=== PATIENT | male | born 1960 | race Caucasian/White ===

== ENCOUNTER 2025-04-29 08:48 | Outpatient (AMB) | payer OTHER, SELFPAY ==
--- NOTE | 2025-04-29 08:58 | A.OFFVIS_ITS ---
Vital Signs 04/29/25 09:02 Height 5 ft 9 in Weight 238 lb BMI 35.1 BP 138/80 Blood Pressure Location Rt brachial Position Sitting Pulse 73 Pulse Source Pulse Oximeter Pulse Oximetry (%) 96 Oxygen Delivery Method Room Air Intake Visit Reasons: ENP - ZAHEER Intake Note: Patient presents MARKETING COORDINATOR ZAHEER. Patient witnessed apnea,gasping,snoring. Jumps in sleep. goes to bed at 11-11-30 gets up at 7-8. gets up about once per night. Patient states HST done few months ago through [facility]. Accompanied by: Spouse Allergies ciprofloxacin (From Cipro) Allergy (Unknown, Verified 04/29/25 09:03) Unknown HPI Comments Details: 65 year old male new patient visit for zaheer referred by his pcp. Tiara his helps with history He has had ZAHEER all his life and has a CPAP machine for over 10 years and the machine is failing. He can not sleep without his cpap mask. He has headaches in the morning and does not feel well rested the next day and chronically fatigued. He wakes up at night gasping for air, choking and snores loudly according to his . He [facility] Sleep Test showed no evidence of zaheer. He would like a PSG. He moves alot, his entire body jerks aggressively and becomes stiff like a muscular spasm. Has difficulty with ligther to deeper stages. RLS burning pain bilaterally denies radiating pain and neuropathy. He has Plantar fasciitis, bilaterally has flat feet. Mood is anxious most of the time, stressed out and eats cookies, ice cream. Memory is good on vyvanse, for focus and lack of concentration. FH+ mom ovarian cancer in 2010, passed at 80. Dad passed right before turning 90 with late onset Alzheimer. Both he and his were tested for Bruce Danlos biomarker, the joints don't sublux. Denies pain. Genetic testing completed, is hypomobile, he is hypermobile lower ext., and Neg for EDS. Daughter was diagnosed with Bruce Danlos at 11 in 2012 wears compression garments. [facility] Medical History (Updated 04/29/25 @ 09:58 by Denise Paige PA-C) Palpitations Acute upper respiratory infection, unspecified Encounter for screening for malignant neoplasm of prostate Testicular hypofunction Encounter for screening for malignant neoplasm of colon Attention-deficit hyperactivity disorder, combined type Generalized anxiety disorder Major depressive disorder, single episode, in full remission Hypertensive chronic kidney disease with stage 1 through stage 4 chronic kidney disease, or unspecified chronic kidney disease Chronic kidney disease, stage 1 Generalized abdominal pain Body mass index 34.0-34.9, adult ADHD Pulmonary embolism Diverticulitis Depression Sleep apnea HTN (hypertension) Surgical History History of colon resection Hx of appendectomy History of total right knee replacement History of left knee replacement Family History Father Hip fracture Mother Ovarian cancer Brother Prostate cancer Maternal Grandmother Breast cancer Social History Alcohol intake: current Alcohol intake frequency: holidays/special occasions only Patient Tobacco Use Status: Never used Tobacco e-Cigarette/Vaping Use: Never Used Physical Exam Vital Signs: Last Vital Signs Pulse 73 04/29/25 09:02 BP 138/80 04/29/25 09:02 Pulse Ox 96 04/29/25 09:02 Oxygen Delivery Method Room Air 04/29/25 09:02 BMI result Body Mass Index 35.1 Const General: cooperative, comfortable and no acute distress Nutritional Appearance: obese Orientation/consciousness: patient oriented x3 HEENT Face and sinus: Yes face symmetric Teeth and gingiva: other ([place] score is 4) Eyes Pupils: Equal, round and reactive pupils present Neck Neck: Yes full ROM Resp Effort & Inspection: normal respiratory effort and able to speak in complete sentences Neuro General: patient oriented x3 and moves all extremities Cranial nerves: Yes Facial sensation intact/muscles of mastication intact, Yes Equal, round and reactive pupils present, Yes Normal accommodation reflex present, Yes Nystagmus not present, Yes Normal facial strength present, Yes Midline tongue present, Yes Ability to bilaterally rotate head present and Yes Ability to bilaterally elevate shoulders present Cognition (Neuro): normal cognition Gait exam (Neuro): Normal gait present Motor exam (neuro): 5/5 motor strength present throughout Deep tendon reflexes (DTR's): Right triceps reflex intensity grade: 2+, Left triceps reflex intensity grade: 2+, Rt Biceps (C5, C6): 2+, Left biceps reflex i ntensity grade: 2+, Right brachioradialis reflex intensity grade: 2+, Left brachioradialis reflex intensity grade: 2+, Right patellar reflex intensity grade: 3+ and Left patellar reflex intensity grade: 3+ Psych Appearance: grossly normal Mental Status: mental status grossly normal Thought process: Normal thought process present Thought content: Normal thought content present Assessment & Plan Assessment & Plan (1) ZAHEER on CPAP: Comment: machine is failing Code(s): G47.33 - Obstructive sleep apnea (adult) (pediatric) Category: Medical (2) Excessive daytime sleepiness: Comment: PSG Code(s): G47.19 - Other hypersomnia Category: Medical (3) Chronic fatigue: Comment: Labs Code(s): R53.82 - Chronic fatigue, unspecified Category: Medical (4) Plantar fasciitis, bilateral: Code(s): M72.2 - Plantar fascial fibromatosis Category: Medical Plan PSG r/o zaheer on cpap therapy for over 10 years, [facility] with [facility] requested results. Labs to r/o chronic fatigue CBC/ CMP/ B12/folate, ferritin, Vit D/ TSH/ Homocysteine MMA. ADHD continue vyvanse 20mg po daily, at breakfast. Irritable mood due to lack of sleep, address Desvenlafaxine dose with pcp. Podiatry referral Bilateral foot pain w/ Plantar fasciitis Orders: Orders RT PSG in-lab sleep study Today G47.19 - Other hypersomnia Referrals Podiatry Referral M72.2 - Plantar fascial fibromatosis Patient Instructions: Sleep Hygiene provided: set a scheduled bedtime and wake time to help regulate the circadian rhythm and balance the release of pituitary hormones. Sleep in a dark room, temperatures below 68 degrees, and no devices n bed. Limit caffeinated products 6 hours prior to bed, and limit fluids 2-4 hours prior to bed. Gentle night yoga, diffusing essential oils, and playing soft music can be relaxing. BMI /Weight is elevated, biking, hiking, swimming can help alleviate stress CBTI livier for meditation and control of strong emotions. Please complete the following fasting labs to rule out deficiencies. CBC/CMP/ B12/ Vit D/ TSH/ Homocysteine and MMA/ Ferritin. Coding Level of Care Code New Pt Level 4 (21760) Diagnoses ZAHEER on CPAP G47.33 Excessive daytime sleepiness G47.19 Chronic fatigue R53.82 Plantar fasciitis, bilateral M72.2 Sleep Questionnaire Difficulty falling asleep: No Difficulty staying asleep?: Yes Number of arousals: irritable- 1-2x / month Snoring: Yes (uncertain) Witnessed apneas: Yes Gasping arousals: Yes Nocturia: No GERD: No Vivid dreams: No Acting out dreams: No Abnormal behavior in sleep: No Abnormal movements in sleep: No Morning headaches: Yes (otc vanquish- hydrating) Excessive daytime sleepiness: Yes Daytime naps: No Restless legs: Yes Hallucinations: No (ringing in ears- bilaterally tinnitus) Sleep paralysis: No Drop attacks: No Sleep Study: Yes CPAP: Yes (>10 years old is failing.)
[2025-04-29 09:02] VITALS: BP 138/80; PULSE 73; O2SAT 96; BMI 35.1
--- OUTSIDE RECORDS SUMMARY | 2025-04-29 09:06 | XMS_ITS | Patient Health Record ---
Author Organization [facility] Address [address] [id number] Care Team Providers Care Roundsman Name Role Phone Madelin Chicas Primary Care Provider [facility] Unavailable [phone] Allergies Allergen (clinical drug ingredient) Drug/Non Drug Allergy documented on EMR Reaction Allergy Type Onset Date Status ciprofloxacin cipro (uncoded) Unknown Allergy Active Results Component Value Reference Range Notes TISSUE EXAM Reviewed date:01/29/2025 04:54:20 PM Interpretation: Performing Lab: Notes/Report: Final Diagnosis Stomach, gastric biopsies: Oxyntic type gastric mucosa with no specific pathologic changes. No Helicobacter type gastritis or reactive changes identified. Gross Description A. Stomach, gastric biopsies: Labeled gastric b stomach . Received in formalin, are five irregular soft to rubbery, rod-pink to red tissue fragments, approximately ranging from 0.25 cm to 0.5 cm in greatest diameters, which are wrapped in paper and submitted in toto in one cassette, five pieces, multiple levels. hs/DG Disclaimer Unless otherwise specified, all tissue is 10% NB formalin fixed and paraffin embedded. Echocardiogram Reviewed date:01/22/2025 01:21:03 PM Interpretation: Performing Lab: Notes/Report: Exercise Treadmill Stress Te st (TMST) Reviewed date:12/19/2024 01:48:49 PM Interpretation: Performing Lab: Notes/Report: Exercise Stress Nuclear Test Reviewed date:01/20/2025 03:07:01 PM Interpretation: Performing Lab: Notes/Report: Amylase-[id number] Reviewed date:07/18/2024 01:29:28 PM Interpretation: Performing Lab:[facility] [place], Phone - [phone], Director Candelario Johansen Notes/Report: Amylase 76 31-110 U/L Lipase-[id number] Reviewed date:07/18/2024 01:29:28 PM Interpretation: Performing Lab:[facility] [address], Phone - [phone], Director Candelario Johansen Notes/Report: Lipase 52 13-78 U/L Testosterone-[id number] Reviewed date:07/18/2024 01:29:28 PM Interpretation: Performing Lab:[facility] [place], [address] [place] [address], Phone - [phone], Director Candelario Johansen Notes/Report: Testosterone 638 264-916 ng/dL Adult male reference interval is based on a population of healthy nonobese males (BMI <30) between 19 and 39 years old. Keyona et.al. JCEM 2017,102;9555-4163. PMID: 45835837. Luteinizing Hormone(LH)-0042 83 Reviewed date:07/18/2024 01:29:28 PM Interpretation: Performing Lab:[facility] [place], [address] [place] [address], Phone - [phone], Director Candelario Johansen Notes/Report: LH 7.6 1.7-8.6 mIU/mL FSH-[id number] Reviewed date:07/18/2024 01:29:28 PM Interpretation: Performing Lab:[facility] [address], Phone - [phone], Director Candleario Johansen Notes/Report: FSH 3.7 1.5-12.4 mIU/mL Prolactin-[id number] Reviewed date:07/18/2024 01:29:28 PM Interpretation: Performing Lab:[facility] [place], [address] [place] [address], Phone - [phone], Director Candelario Johansen Notes/Report: Prolactin 9.7 3.6-25.2 ng/mL CBC With Differential/Platel et-[id number] Reviewed date:07/18/2024 01:29:28 PM Interpretation: Performing Lab:[facility] [place], [address] [place] [address], Phone - [phone], Director - MDJodry Notes/Report: WBC 10.8 3.4-10.8 x10E3/uL RBC 5.11 4.14-5.80 x10E6/uL Hemoglobin 16.1 13.0-17.7 g/dL Hematocrit 47.8 37.5-51.0 % MCV 94 79-97 fL MCH 31.5 26.6-33.0 pg MCHC 33.7 31.5-35.7 g/dL RDW 12.3 11.6-15.4 % Platelets 270 150-450 x10E3/uL Neutrophils 57 Not Estab. % Lymphs 26 Not Estab. % Monocytes 6 Not Estab. % Eos 11 Not Estab. % Basos 0 Not Estab. % Neutrophils (Absolute) 6.2 1.4-7.0 x10E3/uL Lymphs (Absolute) 2.8 0.7-3.1 x10E3/uL Monocytes(Absolute) 0.6 0.1-0.9 x10E3/uL Eos (Absolute) 1.2 0.0-0.4 x10E3/uL Baso (Absolute) 0.0 0.0-0.2 x10E3/uL Immature Granulocytes 0 Not Estab. % Immature Grans (Abs) 0.0 0.0-0.1 x10E3/uL Comp. Metabolic Panel ([id number] Reviewed date:07/18/2024 01:29:28 PM Interpretation: Performing Lab:[facility], [address] [place] [address], Phone - [phone], Director - [facility] Notes/Report: Glucose 96 70-99 mg/dL BUN 11 8-27 mg/dL Creatinine 1.11 0.76-1.27 mg/dL eGFR 75 >59 mL/min/1.73 BUN/Creatinine Ratio 10 10-24 Sodium 143 134-144 mmol/L Potassium 4.1 3.5-5.2 mmol/L Chloride 104 96-106 mmol/L Carbon Dioxide, Total 20 20-29 mmol/L Calcium 9.6 8.6-10.2 mg/dL Protein, Total 6.8 6.0-8.5 g/dL Albumin 4.3 3.9-4.9 g/dL Globulin, Total 2.5 1.5-4.5 g/dL Bilirubin, Total 0.3 0.0-1.2 mg/dL Alkaline Phosphatase 111 44-121 IU/L AST (SGOT) 22 0-40 IU/L ALT (SGPT) 18 0-44 IU/L UA/M w/rflx Culture, Routine -[id number] Reviewed date:07/18/2024 01:29:28 PM Interpretation: Performing Lab:[facility] [place], [address] [facility], Phone - [phone], [facility] Notes/Report: Specific [place] 1.018 1.005-1.030 pH 6.0 5.0-7.5 Urine-Color Yellow Yellow Appearance Clear Clear WBC Esterase Negative Negative Protein Negative Negative/Trace Glucose Negative Negative Ketones Negative Negative Occult Blood Negative Negative Bilirubin Negative Negative Urobilinogen,Semi-Qn 0.2 0.2-1.0 mg/dL Nitrite, Urine Negative Negative Microscopic Examination Micr oscopic follows if indicated. Microscopic Examination See below: Micr oscopic was indicated and was performed. Urinalysis Reflex This speci men will not reflex to a Urine Culture. WBC None seen 0 - 5 /hpf RBC None seen 0 - 2 /hpf Epithelial Cells (non renal) None seen 0 - 10 /hpf Casts None seen None seen /lpf Bacteria None seen None seen/Few Urinalysis, Complete-[id number] Reviewed date:09/25/2024 10:13:57 AM Interpretation: Performing Lab:[facility] [place], [address] [facility], Phone - [phone], [facility] Notes/Report: Specific [place] 1.014 1.005-1.030 pH 6.0 5.0-7.5 Urine-Color Yellow Yellow Appearance Clear Clear WBC Esterase Negative Negative Protein Negative Negative/Trace Glucose Negative Negative Ketones Negative Negative Occult Blood Negative Negative Bilirubin Negative Negative Urobilinogen,Semi-Qn 0.2 0.2-1.0 mg/dL Nitrite, Urine Negative Negative Microscopic Examination Micr oscopic follows if indicated. Microscopic Examination See below: Micr oscopic was indicated and was performed. WBC None seen 0 - 5 /hpf RBC None seen 0 - 2 /hpf Epithelial Cells (non renal) None seen 0 - 10 /hpf Casts None seen None seen /lpf Bacteria None seen None seen/Few Testosterone-[id number] Reviewed date:09/25/2024 10:13:57 AM Interpretation: Performing Lab:[facility] [place], [address] [facility], [place], Phone - [phone], Director - MDJodry Notes/Report: Testosterone 545 264-916 ng/dL Adult male reference interval is based on a population of healthy nonobese males (BMI <30) between 19 and 39 years old. jocelyn Rand.al. JCEM 2017,102;0985-5455. PMID: 50403643. Respiratory Panel w/ SARS-Co [id number] Reviewed date:09/25/2024 11:21:47 AM Interpretation: Performing Lab:[facility] [place], [address] [facility], [place], Phone - [phone], Director - MDJodry Notes/Report: Adenovirus Not Detected Not Detected Coronavirus HKU1 Not Detected Not Detected Coronavirus NL63 Detected Not Detected Coronavirus 229E Not Detected Not Detected Coronavirus OC43 Not Detected Not Detected SARS-CoV-2 Not Detected Not Detected Human Metapneumovirus Not Detected Not Detected Human Rhinovirus/Enterovirus Not Detected Not Detected Influenza A Not Detected Not Detected Influenza A/H1 TNP Test not perf ormed Influenza A/H1-2009 TNP Test not performed Influenza A/H3 TNP Test not perf ormed Influenza B Not Detected Not Detected Parainfluenza 1 Not Detected Not Detected Parainfluenza 2 Not Detected Not Detected Parainfluenza 3 Not Detected Not Detected Parainfluenza 4 Not Detected Not Detected Respiratory Syncytial Virus Not Detected Not Detected Bordetella parapertussis Not Detected Not Detected Bordetella pertussis Not Detected Not Detected Chlamydophila pneumoniae Not Detected Not Detected Mycoplasma pneumoniae Not Detected Not Detected Comp. Metabolic Panel ([id number] Reviewed date:09/25/2024 10:13:57 AM Interpretation: Performing Lab:[facility] [place], [address] [facility], [place], Phone - [phone], Director - MDJodry Notes/Report: Glucose 92 70-99 mg/dL BUN 13 8-27 mg/dL Creatinine 1.06 0.76-1.27 mg/dL eGFR 79 >59 mL/min/1.73 BUN/Creatinine Ratio 12 10-24 Sodium 141 134-144 mmol/L Potassium 4.4 3.5-5.2 mmol/L Chloride 100 96-106 mmol/L Carbon Dioxide, Total 24 20-29 mmol/L Calcium 9.6 8.6-10.2 mg/dL Protein, Total 7.2 6.0-8.5 g/dL Albumin 4.4 3.9-4.9 g/dL Globulin, Total 2.8 1.5-4.5 g/dL Bilirubin, Total 0.6 0.0-1.2 mg/dL Alkaline Phosphatase 93 44-121 IU/L AST (SGOT) 16 0-40 IU/L ALT (SGPT) 13 0-44 IU/L PSA Total+% Free-[id number] Reviewed date:09/25/2024 10:13:57 AM Interpretation: Performing Lab:[facility] [place], [address], [place], Phone - [phone], Director - Eleno Notes/Report: Prostate Specific Ag 2.9 0.0-4.0 ng/mL Tyler ECLIA methodology. . According to the [place] [employer], Serum PSA should decrease and remain at undetectable levels after radical prostatectomy. The AUA defines biochemical recurrence as an initial PSA value 0.2 ng/mL or greater followed by a subsequent confirmatory PSA value 0.2 ng/mL or greater. Values obtained with different assay methods or kits cannot be used interchangeably. Results cannot be interpreted as absolute evidence of the presence or absence of malignant disease. PSA, Free 0.64 N/A ng/mL Tyler ECLIA methodology. % Free PSA 22.1 The table below lists the probability of prostate cancer for men with non-suspicious CHRIS results and total PSA between 4 and 10 ng/mL, by patient age (Adilene et al, LORETTA 1998, 279:1542). % Free PSA 50-64 yr 65-75 yr 0.00-10.00% 56% 55% 10.01-15.00% 24% 35% 15.01-20.00% 17% 23% 20.01-25.00% 10% 20% >25.00% 5% 9% Please note: Adilene et al did not make specific recommendations regarding the use of percent free PSA for any other population of men. EKG Reviewed date:09/25/2024 10:13:57 AM Interpretation: Performing Lab: Notes/Report: ECGDiastolicBP 78 ECGHr 77 ECGPRInterval 152 ECGPWaveAxis 18 ECGQRSDuration 90 ECGQrsWaveAxis 25 ECGQTcInterval 391 ECGQTInterval 362 ECGSystolicBP 126 ECGTWaveAxis -1 RR_DiastolicBP 0 RR_MaxRRInterval 0 RR_MeanHR 0 RR_MeanRRInterval 0 RR_MinRRInterval 0 RR_NumBeats 0 RR_NumNormalBeats 0 RR_SystolicBP 0 COLOGUARD Reviewed date:07/23/2024 10:49:55 PM Interpretation:Negative Performing Lab: Notes/Report: Negative FIT DNA COLOGUARD 07/21/2024 Reason For Referral Reason screening colonoscop y due and would benefit from endoscopy due to worsening reflux faxed Diagnosis 1 Encounter for screen ing for malignant neoplasm of colon (Z12.11) Referral Organization [facility] Referring Provider First Name Madelin Referring Provider Last Name Aviva Referring Provider Speciality Nurse Geovanny tobar Referred Provider Moo Gannon Referred Provider Specialty Gastroentero logy General Notes Rayne BURRELL 06/19 03:48:18 PM >faxed Referral Priority Routine Referral Appointment Date 10/23/2024 Reason Over 15,000 PVCs, wi ll need consult faxed REFAXED Diagnosis 1 Ventricular prematur e depolarization (I49.3) Referral Organization [facility] Referring Provider First Name Madelin Referring Provider Last Name Aviva Referring Provider Speciality Nurse Geovanny tobar Referred Provider Pioneer Sean chambers, Fina Referred Provider Specialty Cardiology General Notes Rayne BURRELL 11/2024 05:31:23 PM >[facility]ed, [facility] 10/28/2024 11:37:53 AM > REFAXED PER PATIENT, Divina BURRELL 01/19/2025 09:19:10 AM > Called PVC spoke to Jing 07/01/2025 at 10:20 am, Divina BURRELL 01/19/2025 09:26:46 AM > Left a message for Renata Referral Priority Routine Referral Appointment Date 02/26/2025 Reason faxed Diagnosis 1 Obstructive sleep ap vicenta (adult) (pediatric) (G47.33) Referral Organization [facility] Referring Provider First Name Madelin Referring Provider Last Name Aviva Referring Provider Speciality Nurse Geovanny tobar Referred Provider Sudha Huff Referred Provider Specialty Sleep Medici ne General Notes [facility] 02/15 11:07:33 AM >faxed Referral Priority Routine Medications Medication SIG (Take, Route, Frequency, Duration) Notes Start Date End Date Status AndroGel Pump 20.25 MG/ACT (1.62%) 1 pump to skin in the morning to shoulder, upper arms or abdomen Transdermal Once a day; Duration: 30 days 04/16/2025 Active Desvenlafaxine Succinate ER 50 MG Take 1 tablet by mouth once daily; Duration: 90 days Active Losartan Potassium 50 MG Take 1 tablet b y mouth once daily; Duration: 90 Active Vyvanse 20 MG 1 capsule in the mor freddie Orally Once a day; Duration: 30 days 03/25/2025 Active Semaglutide-Weight Management 1.7 MG/0.75ML 0.75 mL Subcutaneous Active Repatha SureClick 140 MG/ML INJECT 1ML SUBCUTANEOUSLY EVERY TWO WEEKS; Duration: 28 Active Immunizations Vaccine Route Administration Date Status Comme nts *Tdap IM Intramuscular 02/23/2023 Administered Social History Alcohol Screen (Audit-C) Question Answer Notes Did you have a drink containing alcohol in the p ast year? No Points 0 Interpretation Negative AUDIT-C (Standard) Question Answer Notes Did you have a drink containing alcohol in the p ast year? No Points 0 Interpretation Negative Problems Problem Type SNOMED Code ICD Code Onset Dates Problem Status W/U Status Risk Notes Problem Testicular hypofunction (095471109) Testicular hypofunction (E29.1) Active confirmed Problem Vitamin D deficiency (03472262) Vitamin D deficiency, unspecified (E55.9) Active confirmed Problem Mixed hyperlipidemia (010703595) Mixed hyperlipidemia (E78.2) Active confirmed Problem Major depression, single episode, in complete remission (52608569) Major depressive disorder, single episode, in full remission (F32.5) Active confirmed Problem Generalized anxiety disorder (09837615) Generalized anxiety disorder (F41.1) Active confirmed Problem Attention deficit hyperactivity disorder, combined type (39893048) Attention-deficit hyperactivity disorder, combined type (F90.2) Active confirmed Problem Chronic migraine without aura, non-intractable (112349426016543) Chronic migraine without aura, not intractable, without status migrainosus (G43.709) Active confirmed Problem Obstructive sleep apnea syndrome (disorder) (49214823) Obstructive sleep apnea (adult) (pediatric) (G47.33) Active confirmed Problem Chronic kidney disease due to hypertension (410300083868309) Hypertensive chronic kidney disease with stage 1 through stage 4 chronic kidney disease, or unspecified chronic kidney disease (I12.9) Active confirmed Problem Atherosclerotic heart disease of [place] coronary artery without angina pectoris (686062370048178) Atherosclerotic heart disease of [place] coronary artery without angina pectoris (I25.10) Active confirmed Problem Ventricular premature depolarization (873146645) Ventricular premature depolarization (I49.3) Active confirmed Problem Diverticulosis o f both small and large intestine without perforation or abscess with bleeding (K57.51) Active confirmed Problem SHUKLA - Nonalcoholic steatohepatitis (021850243) Nonalcoholic steatohepatitis (SHUKLA) (K75.81) Active confirmed Problem Osteoarthritis of knee (270559843) Bilateral primary osteoarthritis of knee (M17.0) Active confirmed Problem Chronic kidney disease stage 1 (076229050) Chronic kidney disease, stage 1 (N18.1) Active confirmed Problem Erectile dysfunction (disorder) (420786567) Other male erectile dysfunction (N52.8) Active confirmed Problem History of pulmonary embolus (043643568) Personal history of pulmonary embolism (Z86.711) Active confirmed Problem COVID19 ANGELA-Viru s Identified (U07.1) Active confirmed Problem Body mass index 35.00 to 39.99 (708390229225549) Body mass index [BMI] 36.0-36.9, adult (Z68.36) Active confirmed Problem Body mass index 35.00 to 39.99 (071808600032792) Body mass index [BMI] 37.0-37.9, adult (Z68.37) Active confirmed Problem Body mass index 30.00 to 34.99 (404241056040625) Body mass index [BMI] 34.0-34.9, adult (Z68.34) Problem resolved confirmed Vital Signs Heart Rate 98 /min 10/20/2024 Temperature 96.7 degrees Fahrenheit 09/24/2024 Oximetry 98 % 09/24/2024 Blood pressure diastolic 76 mm Hg 10/20/2024 Height 5 ft 8 in in 10/20/2024 Blood pressure systolic 128 mm Hg 10/20/2024 Weight 228 lbs 10/20/2024 BMI 34.66 kg/m2 10/20/2024 Procedures Procedure Date Ordered Date Performed Result Body Sit e HOLTER MONITOR, 7 DAYS, INTERPRETATION 10/20/2024 N/A HOLTER MONITOR, 7 DAYS, APPLICATION 09/24/2024 N/A Encounters Encounter Location Date Provider Diagnosis [facility] [address] [id number] 06/24/2024 Madelin Chicas Hypertensive chronic kidney disease with stage 1 through stage 4 chronic kidney disease, or unspecified chronic kidney disease I12.9 ; Chronic kidney disease, stage 1 N18.1 ; Major depressive disorder, single episode, in full remission F32.5 ; Generalized anxiety disorder F41.1 ; Attention-deficit hyperactivity disorder, combined type F90.2 and Encounter for screening for malignant neoplasm of colon Z12.11 [facility] [address] [id number] 07/17/2024 Madelin Chicas Major depressive disorder, single episode, in full remission F32.5 ; Testicular hypofunction E29.1 ; Abdominal distension (gaseous) R14.0 ; Generalized abdominal pain R10.84 ; Vomiting, unspecified R11.10 and Encounter for screening for malignant neoplasm of colon Z12.11 [facility] [address] [id number] 09/24/2024 Madelin Chicas Generalized abdomina l pain R10.84 ; Hypertensive chronic kidney disease with stage 1 through stage 4 chronic kidney disease, or unspecified chronic kidney disease I12.9 ; Chronic kidney disease, stage 1 N18.1 ; Major depressive disorder, single episode, in full remission F32.5 ; Generalized anxiety disorder F41.1 ; Attention-deficit hyperactivity disorder, combined type F90.2 ; Encounter for screening for malignant neoplasm of colon Z12.11 ; Testicular hypofunction E29.1 ; Encounter for screening for malignant neoplasm of prostate Z12.5 ; Acute upper respiratory infection, unspecified J06.9 and Palpitations R00.2 [facility] [address] [id number] 10/20/2024 Madelin Chicas Hypertensive chronic kidney disease with stage 1 through stage 4 chronic kidney disease, or unspecified chronic kidney disease I12.9 ; Major depressive disorder, single episode, in full remission F32.5 ; Generalized anxiety disorder F41.1 ; Attention-deficit hyperactivity disorder, combined type F90.2 and Ventricular premature depolarization I49.3 [facility] [address] [id number] 06/06/2024 Madelin Aguilar MD [address] [id number] 07/10/2024 Madelin Aguilar MD [address] [id number] 07/18/2024 Madelin Aguilar MD [address] [id number] 07/24/2024 Madelin Chicas Generalized abdomina l pain R10.84 and Vomiting, unspecified R11.10 [facility] [address] [id number] 08/12/2024 Madelin Chicas Generalized abdomina l pain R10.84 and Vomiting, unspecified R11.10 [facility] [address] [id number] 09/25/2024 Madelin Aguilar MD [address] [id number] 09/26/2024 Madelin Aguilar MD [address] [id number] 10/22/2024 Madelin Aguilar MD [address] [id number] 10/25/2024 Madelin Aguilar MD [address] [id number] 12/19/2024 Madelin Aviva Ventricular prematur e depolarization I49.3 [facility] [address] [id number] 12/29/2024 Madelin Aguilar MD [address] [id number] 01/19/2025 Madelin Aguilar MD [address] [id number] 02/16/2025 Madelin Aguilar MD [address] [id number] 04/15/2025 Madelin Chicas Testicular hypofunct ion E29.1 [facility] [address], [place] [id number] 05/02/2024 Madelin Chicas [facility] [address] [facility] [address] [place] [address] [id number] 07/02/2024 [facility] [address] [facility] [address] [place] [address] [id number] 07/28/2024 Madelin Chicas [facility] [address] [facility] [address] [place] [address] [id number] 08/06/2024 Madelin Chicas [facility] [address] [facility] [address] [place] [address] [id number] 08/26/2024 Madelin Chicas Mixed hyperlipidemia E78.2 [facility] [address] [facility] [address] [place] [address] [id number] 09/02/2024 [facility] [address] [facility] [address] [place] [address] [id number] 09/13/2024 [facility] [address] [facility] [address] [place] [address] [id number] 09/27/2024 [facility] [address] [facility] [address] [place] [address] [id number] 10/25/2024 [facility]icasjeannette [facility] [address] [facility] [address] [place] [address] [id number] 10/29/2024 [facility] [address] [facility] [address] [place] [address] [id number] 10/31/2024 Mad[facility]icasjeannette [facility] [address] [facility] [address] [place] [address] [id number] 11/04/2024 [facility] [address] [facility] [address] [place] [address] [id number] 12/09/2024 Mad[facility]icasjeannette [facility] [address] [facility] [address] [place] [address] [id number] 12/12/2024 [facility] [address] [facility] [address] [place] [address] [id number] 12/23/2024 [facility] [address] [facility] [address] [place] [address] [id number] 12/24/2024 [facility] [address] [facility] [address] [place] [address] [id number] 01/21/2025 [facility] [address] [place] [address] [id number] 02/18/2025 Madelin Aguilar MD [address] [id number] 02/23/2025 Madelin Aguilar MD [address] [id number] 02/27/2025 Madelin Aguilar MD [address] [id number] 03/25/2025 Madelin Aguilar MD [address] [id number] 04/14/2025 Madelin Chicas Testicular hypofunct ion E29.1 Assessments Encounter Date Diagnosis (ICD Code) Assessment Notes Treatment Notes Treatment Clinical Notes Section Notes 06/24/2024 Hypertensive chronic kidney disease with stage 1 through stage 4 chronic kidney disease, or unspecified chronic kidney disease (ICD-10 - I12.9) Blood pressure stable during today's visit. Patient to remain on current medication regimen 06/24/2024 Chronic kidney disease, stage 1 (ICD-10 - N18.1) Most recent GFR noted to be in the 70s 07/24/2024 Generalized abdominal pain (ICD-10 - R10.84) 08/12/2024 Generalized abdominal pain (ICD-10 - R10.84) 08/26/2024 Mixed hyperlipidemia (ICD-10 - E78.2) 09/24/2024 Generalized abdominal pain (ICD-10 - R10.84) Patient states his abdominal pain, indigestion, and nausea has improved since last visit. He currently has remained off of his weight loss semaglutide as he shared concerns that his abdominal discomfort and GI symptoms were related to semaglutide use. Discussed with patient that it is a likely cause and patient to remain off of this medication at this time and we can reassess restarting him at his October follow-up visit 10/20/2024 Major depressive disorder, single episode, in full remission (ICD-10 - F32.5) Spent much time discussing patient's current medication regimen for underlying mental health as well as ADHD. Patient has seen great improvement in his depressive symptoms since starting Vyvanse as well as taking Pristiq. Did discuss with patient these types of medications and affects on serotonin, but do not suspect that the doses that he is taking would cause the amount of PVCs noted on his Holter monitor (0ver 15,000). Patient could trial coming off of Vyvanse to see if this improves his palpitations in any way and patient agreeable with this plan and will take days off of Vyvanse use to see if there is a noticeable improvement 12/19/2024 Ventricular premature depolarization (ICD-10 - I49.3) 04/14/2025 Testicular hypofunction (ICD-10 - E29.1) 04/15/2025 Testicular hypofunction (ICD-10 - E29.1) 10/20/2024 Hypertensive chronic kidney disease with stage 1 through stage 4 chronic kidney disease, or unspecified chronic kidney disease (ICD-10 - I12.9) Blood pressure stable during today's visit. Patient to remain on current medication regimen 07/17/2024 Testicular hypofunction (ICD-10 - E29.1) See plan above.Will obtain lab work to further evaluate for testosterone deficiency as patient states he was previously treated with topical testosterone gel and he has noticed improvement in his depressive symptoms when he restarted an old prescription of this 07/17/2024 Major depressive disorder, single episode, in full remission (ICD-10 - F32.5) Patient states he has been tracking his moods and he recently restarted a previous prescription of topical testosterone any note improvement in his depression when he restarted testosterone gel. Would like patient to remain on current medication regimen but would like to obtain hormone levels to reassess his testosterone level and determine if he should be on this medication. Would like patient to be cautious with using all medications and would like lab work to further evaluate and determine if testosterone replacement therapy is warranted for patient. 07/17/2024 Abdominal distension (gaseous) (ICD-10 - R14.0) Reviewed patient's presenting symptoms and given his abdominal distention, generalized abdominal discomfort and tenderness on evaluation, and episodes of vomiting 3 to 4 days in a row last week to obtain further imaging. Patient shared for the first time that he did have a bowel resection due to diverticulitis in the past. Discussed that with this new knowledge would like patient to remain off semaglutide until further imaging and lab work is obtained. Patient to also follow a bland diet and follow-up with any new or worsening symptoms while we wait for lab results and imaging results 10/20/2024 Generalized anxiety disorder (ICD-10 - F41.1) See plan above 09/24/2024 Chronic kidney disease, stage 1 (ICD-10 - N18.1) Most recent GFR noted to be in the 70s 09/24/2024 Hypertensive chronic kidney disease with stage 1 through stage 4 chronic kidney disease, or unspecified chronic kidney disease (ICD-10 - I12.9) Blood pressure stable during today's visit. Patient to remain on current medication regimen 08/12/2024 Vomiting, unspecified (ICD-10 - R11.10) 07/24/2024 Vomiting, unspecified (ICD-10 - R11.10) 06/24/2024 Major depressive disorder, single episode, in full remission (ICD-10 - F32.5) Stable at present time and patient to continue taking his medications regularly as he has seen improvement in his overall moods. Patient also consider additional mental health support and working with a therapist to further assist in managing his mental health needs and assist in adding additional coping strategies 06/24/2024 Generalized anxiety disorder (ICD-10 - F41.1) See plan above 09/24/2024 Major depressive disorder, single episode, in full remission (ICD-10 - F32.5) Stable at present time and patient is seen great improvement in his depressive symptoms since starting Vyvanse, remaining on Pristiq, and did restarting an old prescription of topical testosterone AndroGel. Discussed with patient that I would like to begin treatment with a current prescription to ensure proper efficacy 10/20/2024 Attention-deficit hyperactivity disorder, combined type (ICD-10 - F90.2) Stable and patient continues to have improvement in his concentration and focus since starting Vyvanse. Did review patient's Holter monitor which did reveal a large amount of PVCs daily. Patient is agreeable to begin a trial off of Vyvanse to see if this further improves his palpitation episodes. Do not suspect this low dose in conjunction with Pristiq would cause elevated PVCs over 15,000 the patient is agreeable to trial being off of Vyvanse to determine if palpitations improve 07/17/2024 Generalized abdominal pain (ICD-10 - R10.84) See plan above.Patient to remain off semaglutide until further evaluation with lab work and imaging is completed. 07/17/2024 Vomiting, unspecified (ICD-10 - R11.10) Reviewed with patient his episodes of vomiting and inability to keep food down multiple days last week. Patient says his vomiting has stopped but he is aware to follow-up should he have any return of vomiting episodes. 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 Discussed with patient that I do not suspect that his medications are the underlying cause for this, but patient is going to trial a period of time off Vyvanse to see if these palpitations improved. Patient would also benefit from a cardiology consult given these PVCs and will refer patient to [facility] cardiology. Will also obtain an echocardiogram and stress test to ensure there is no underlying ischemia as this would be helpful to complete before patient is evaluated by cardiology 09/24/2024 Generalized anxiety disorder (ICD-10 - F41.1) See plan above 06/24/2024 Attention-deficit hyperactivity disorder, combined type (ICD-10 - F90.2) Stable and patient has seen great improvement in his concentration and focus since beginning Vyvanse. Patient to remain on current medication regimen and to follow-up should he have any new or worsening symptoms of ADHD that is not well-managed on current Vyvanse dose 09/24/2024 Attention-deficit hyperactivity disorder, combined type (ICD-10 - F90.2) Stable and patient continues to have improvement in his concentration and focus since starting Vyvanse. Patient to remain on current medication regimen 06/24/2024 Encounter for screening for malignant neoplasm of colon (ICD-10 - Z12.11) Patient was previously referred to Dr. Askew per patient's request as he was due for an updated screening colonoscopy. Patient states he would like to complete a Cologuard instead as he has no previous concerning findings on a colonoscopy and does not have any family history of colon cancer. Will order Cologuard and patient to complete this kit once he receives it 07/17/2024 Encounter for screening for malignant neoplasm of colon (ICD-10 - Z12.11) Discussed with patient his previous history of diverticulitis and a bowel resection which was new information provided during today's visit. Due to this, would like patient to undergo a screening colonoscopy rather than Cologuard for full evaluation of his bowels 09/24/2024 Encounter for screening for malignant neoplasm of colon (ICD-10 - Z12.11) Patient was previously referred to Dr. Askew to move forward with a screening colonoscopy rather than complete a Cologuard. Patient states he has not been contacted by the gastroenterology office and encouraged patient to reach out to them directly at the referral was placed from our office 09/24/2024 Testicular hypofunction (ICD-10 - E29.1) Patient states that prior to becoming an active patient and he was treating low testosterone with Topical AndroGel. He states he restarted this treatment from an old prescription and has since noticed improvements in his anxiety. Discussed with patient that his testosterone levels have been increasing but would relate that to his topical AndroGel treatment. Would like patient to be prescribed an updated prescription for him to fill and will begin prescribing from our office rather than patient using an old, potentially prescription. 09/24/2024 Encounter for screening for malignant neoplasm of prostate (ICD-10 - Z12.5) Will obtain a PSA level realizing the limitations of this is a screening test only. Patient offers no urinary concerns at this time. Discussed with patient that his PSA did not result after his lab draw from his annual wellness visit 09/24/2024 Acute upper respiratory infection, unspecified (ICD-10 - J06.9) Discussed with patient his presenting sick symptoms as well as severe tenderness noted to maxillary sinus on the left side. Given patient's unilateral facial pain and production of discolored nasal drainage, will begin treatment with antibiotic. Also obtain a viral swab to ensure there is no additional causes for his presenting symptoms 09/24/2024 Palpitations (ICD-10 - R00.2) Spent time discussing patient's intermittent episodes of palpitations that have been present for a few weeks. EKG completed in office and normal sinus rhythm noted with occassional PVCs present. Patient agreeable to wear a 7 day Holter monitor for further evaluation. Patient to follow-up in 1 month to review Holter monitor as well as discuss further treatments that may be warranted depending on results of Holter Plan Of Treatment Pending Test Test Name Order Date Colonoscopy 02/05/2023 25OH VITAMIN D 11/02/2022 COMPLETE CBC WITH DIFF 11/02/2022 COMPLETE URINALYSIS 11/02/2022 COMPREHENSIVE METABOLIC PANEL 11/02/2022 FREE TESTOSTERONE 11/02/2022 FSH 11/02/2022 LH 11/02/2022 LIPID PANEL 11/02/2022 PROLACTIN 11/02/2022 TESTOSTERONE 11/02/2022 TSH WITH REFLEX TO FT4 11/02/2022 URINARY MICROALBUMIN 11/02/2022 CT Abdomen Pelvis WO Cont 07/24/2024 CT Abdomen Pelvis WO Cont 08/12/2024 CT Abdomen WO 07/17/2024 ANTI-HEPATITIS C W/RFLX HCV QNT 11/02/19 MMR (MEASLES, MUMPS, RUBELLA) IGG TITER 11/02/2022 HOLTER MONITOR, 7 DAYS, APPLICATION 04/2025 HOLTER MONITOR, 7 DAYS, INTERPRETATION 0 10/20/2024 PSA Total+% Free-[id number] 03/27/2024 Next Appt Details Provider Name:Madelin Chicas , 04/30/2025 09:00:00 AM, [address] [place] [address], [facility] [address], [place], [place], [id number], Insurance Providers Payer Name Payer Address Payer Phone Subscriber Number Group Number Insured Name Patient Relationship to Insured Coverage Start Date Coverage End Date [employer] PPO [address] [place] [address] [phone] [id number] Nikunj Gomez Self - patient is the insured Medical (General) History Medical History History ICD Code HTN Sleep Apnea Depression Diverticulitis Pulmonary Embolism ADHD Body mass index [BMI] 34.0-34.9, adult ( resolved 03/29/2024) undefined Surgical History Surgery Date(Month/Year) Left knee replacement 12/2021 Right knee replacement 06/2022 vein removal left leg 2018 appendectomy 2002 colon resection 2015 Hospitalization History Reason Date(Month/Year)
--- OUTSIDE RECORDS SUMMARY | 2025-04-29 09:06 | XMS_ITS | Clinical Summary ---
Author Organization [facility] Address [address] [place] [address] Phone Care Team Providers Care Agriculture Intern Name Role Phone Madelin Chicas NP Primary Care Provider [phone] Allergies Active Allergy Reactions Criticality Noted Date Comments Ciprofloxacin Hcl 10/23/2024 Ciprofloxacin 12/30/2017 Other Reaction(s): Other (See Comments) Nerve pain Nerve and tendon damage Levofloxacin 12/30/2017 Other Reaction(s): Other (See Comments) Nerve and tendon damage Moxifloxacin 12/30/2017 Other Reaction(s): Other (See Comments) Nerve and tendon damage Sulfa (Sulfonamide Antibiotics) 01/27/2025 Medications omeprazole OTC (PriLOSEC OTC) 20 mg EC tabletIndicatio ns:Gastroesopha geal reflux disease, unspecified whether esophagitis present Take 1 tablet (20 mg total) by mouth 1 (one) time each day. Do not crush, chew, or split. 30 tablet 3 5 10/23/19 26 Active losartan (COZAAR) 50 mg tablet Take 1 tablet (50 mg total) by mouth 1 (one) time each day. Active polyethylene glycol (Golytely) 236-22.74-6.74 -5.86 gram solution Take 4L by mouth once for one dose. May substitue any PEG. Starting at 6PM the night before your procedure drink 1 8oz glasses at your own pace until you complete half of the gallon. Finish 2nd half of the gallon 5 hours before your procedure. 4000 mL Active Additional Information Patient not taking.Reported on 02/26/2025 bisacodyL (DULCOLAX) 5 mg EC tablet Take 2 tablets by mouth right before beginning bowel prep. See instructions provided by the office 2 tablet Active Additional Information Patient not taking.Reported on 02/26/2025 Repatha SureClick 140 mg/mL pen injector injection Inject 1 mL (140 mg total) under the skin every 14 (fourteen) days. Active desvenlafaxine succinate (PRISTIQ) 50 mg 24 hr tablet Take 1 tablet (50 mg total) by mouth 1 (one) time each day. Active Vyvanse 20 mg capsule Take 1 capsule (20 mg total) by mouth 1 (one) time each day in the morning. Active verapamil SR (CALAN-SR) 120 mg CR tablet Take 1 tablet (120 mg total) by mouth at bedtime. Do not crush or chew. 90 each 3 5 02/27/20 Active Active Problems Problem Noted Date Diagnosed Date Ventricular premature depolarization 02/24/2025 Assessment & Plan (02/26/2025 2:53 PM EDT): Orders: Ambulatory referral to Cardiology ECG 12 lead Cardiac holter monitor (<= 48 hours); Future Encounters Date Type Department Care Team Description 03/13/2025 8:30 AM EDT Ancillary Procedure [facility] Cardiology [facility] [address] [place] [address] Ventricular premature depolarization 02/26/2025 1:30 PM EDT Office Visit [facility] Cardiology [facility] [address] [facility] [address] [place] [address] Hector Wright MD Primary hypertension (Primary Dx); Ventricular premature depolarization 01/28/2025 Telephone Gastroenterology - [address] [place] [address] Noemi Geri, [place] 01/27/2025 10:30 AM EDT Anesthesia Event [facility] Endoscopy [address] [place] [address] Ben Cervantes MD Swanson, Mona, CRNA 01/27/2025 9:49 AM EDT - 01/27/2025 11:59 PM EDT Hospital Encounter [facility]oscopy [address] [place] [address] Rosalind Askew MD Swanson, Mona, CRNA Korobkov, Vitaliy, DO Colon cancer screening; Gastroesophageal reflux disease, unspecified whether esophagitis present; Epigastric pain Discharge Disposition: Home or Self Care from Last 3 Months Surgical History Surgery Date Site/Laterality Comments COLON SURGERY APPENDECTOMY TOTAL KNEE ARTHROPLASTY Bilateral Medical History Medical History Date Comments Hypertension Depression Sleep apnea Pulmonary embolism (CMS/HCC V24, CMS/HCC V28) Adhd Hypertensive chronic kidney disease with stage 1 through stage 4 chronic kidney disease, or unspecified chronic kidney disease Social History Tobacco Use Types Packs/Day Years Used Date Smoking Tobacco: Never Smokeless Tobacco: Never Tobacco Cessation:Counseling Given: Not Answered Alcohol Use Standard Drinks/Week Comments Not Currently 0 (1 standard drink = 0.6 oz pur e alcohol) Interpersonal Safety Answer Date Record ed Physical Abuse 01/27/2025 Verbal Abuse 01/27/2025 Sex and Gender Information Value Date Recorded Sex Assigned at Male 08/04/2024 10:35 AM EST Legal Sex Male 8:23 PM EST Gender Identity Male 08/04/2024 10:35 AM EST Sexual Orientation Straight 08/04/2024 10 :37 AM EST Sexual Orientation Choose not to disclose 2023 10:37 AM EST Obstetrics History Last Filed Vital Signs Vital Sign Reading Time Taken Comments Blood Pressure 124/80 02/26/2025 1:29 PM EDT Pulse 78 01/27/2025 11:17 AM EDT Temperature 36.1 C (97 F) 01/27/2025 10:13 AM EDT Respiratory Rate 16 01/27/2025 11:17 AM EDT Oxygen Saturation 98% 02/26/2025 1:29 PM EDT Inhaled Oxygen Concentration - - Weight 108 kg (238 lb) 02/26/2025 1:29 PM EDT Height 172.7 cm (5' 8 ) 02/26/2025 1:29 PM EDT Body Mass Index 36.19 02/26/2025 1:29 PM EDT Plan of Treatment Health Maintenance Due Date Last Done Comments COVID-19 Vaccine (#1) 1966 Hepatitis A Vaccines (1 of 2 - Risk 2-dose series) 02/12/1980 Pneumococcal Vaccine: 50+ Years (1 of 2 - PCV) 02/12/1980 Zoster Vaccines (1 of 2) 02/12/1980 Hepatitis B Vaccines (1 of 3 - Risk 3-dose series) 2021 RSV Immunization Adult Patients (1 - Risk 60-74 years 1-dose series) 2021 HIV Screening 10/12/2023 Social Influencers of Health Screening 10/12/2023 Hypertension/CHF/CAD Annual BMP Blood Test 08/07/2024 Depression Screening 09/17/2024 Cholesterol Screening (Lipid Panel) 10/06/2024 10/06/2019 Influenza Vaccine (#1) 2025 DTaP,Tdap,and Td Vaccines (2 - Td or Tdap) 02/23/2033 02/23/2023 Colorectal Cancer Screening: Colonoscopy 01/27/2035 01/27/2025 Hepatitis C Screening Completed 12/16/2020 , 06/12/2018 HIB Vaccines Aged Out No longer eligi ble based on patient's age to complete this topic HPV Vaccines Aged Out No longer eligi ble based on patient's age to complete this topic IPV Vaccines Aged Out No longer eligi ble based on patient's age to complete this topic MMR Vaccines Aged Out No longer eligi ble based on patient's age to complete this topic Meningococcal ACWY Vaccine Aged Out N o longer eligible based on patient's age to complete this topic Meningococcal B Vaccine Aged Out No l onger eligible based on patient's age to complete this topic RSV Immunization Patients Under 20 months Aged Out No longer eligible b ased on patient's age to complete this topic Varicella Vaccines Aged Out No longer eligible based on patient's age to complete this topic Procedures Procedure Name Priority Date/Time Associated Diagnosis Comments CARDIAC HOLTER MONITOR (REPORT GENERATED IN HOUSE) Routine 03/13/2025 8:25 AM EDT Ventricular premature depolarization ECG 12-LEAD Routine 02/26/2025 1:35 PM EDT Ventricular premature depolarization COLONOSCOPY Routine 01/27/2025 10:56 AM EDT Colon cancer screening Gastroesophageal reflux disease, unspecified whether esophagitis present Epigastric pain EGD Routine 01/27/2025 10:56 AM EDT Colon cancer screening Gastroesophageal reflux disease, unspecified whether esophagitis present Epigastric pain TISSUE EXAM Routine 01/27/2025 10:38 AM EDT Colon cancer screening Gastroesophageal reflux disease, unspecified whether esophagitis present Epigastric pain from Last 3 Months Results * CARDIAC HOLTER MONITOR (REPORT GENERATED IN HOUSE) (03/13/2025 8:25 AM EDT) Anatomical Region Laterality Modality Cardiac Diagnost ic Narrative 03/26/2025 1:42 PM EDT [facility]ING DEPARTMENT [address] [place] [address] TEL: FAX: Type of Test: 24 Hour Holter Monitor Date of Test: 03/13/2025 Ordering Provider: Hector Wright MD Reason for Test: Ventricular premature depolarization Impression: 1: Normal Sinus Rhythm. 2: Rare PACs and two atrial pairs. 3: Frequent PVCs and ventricular trigeminy. Occasional ventricular bigeminy. Rare couplets and one triplet. PVC [place] was 5.7%. 4: No significant pause noted, longest R-R was 1.2 seconds at 1:28 AM. 5: Diary returned with symptoms of palpitations and tingling in arms noted. EKG at those times showed Normal Sinus Rhythm with isolated PVCs. Heart rates were in the range of 66-77 bpm. us Hector Wright MD [facility] Final Result * ECG 12 lead (02/26/2025 1:35 PM EDT) Ventricular Rate ECG 76 BPM GEMUSE Atrial Rate 76 BPM GEMUSE P-R Interval 142 ms GEMUSE QRS Duration 96 ms GEMUSE Q-T Interval 388 ms GEMUSE QTc 436 ms GEMUSE P Wave Lugoff 7 degrees GEMUSE R Lug[place] 50 degrees GEMUSE T [place] 54 degrees GEMUSE ECG Interpretation Sinus rhythm with occasional Premature ventricular complexes Nonspecific T wave abnormality Abnormal ECG No previous ECGs available Confirmed by MD Kyle, Hector ([id number]) on 03/02/2025 9:34:18 AM GEMUSE 02/26/2025 1:35 PM EDT 03/02/2025 9:34 AM EDT us Hector Wright MD ECG ORDERABLES Final Res ult GEMUSE * COLONOSCOPY Anesthesia - MAC; [facility] ENDOSCOPY (01/27/2025 10:56 AM EDT) Anatomical Region Laterality Modality Other 01/27/2025 10:4 1 AM EDT Impressions 01/27/2025 10:56 AM EDT - Diverticulosis in the sigmoid colon and in the descending colon. - The examination was otherwise normal on direct and retroflexion views. - No specimens collected. Recommendation: - Repeat colonoscopy in 10 years for screening purposes. Narrative 01/27/2025 10:56 AM EDT [facility] GI Patient Name: Nikunj Gomez Procedure Date: 01/27/2025 10:41 AM Date of : 1960 Age: 64 Gender: Male Note Status: Finalized Attending MD: Rosalind Askew MD, Procedure Date No Time: 01/27/2025 Procedure: Colonoscopy Indications: Screening for colorectal malignant neoplasm Providers: Rosalind Askew MD Referring MD: Madelin Chicas NP Medicines: Propofol per Anesthesia Complications: No immediate complications. Estimated Blood Loss: Estimated blood loss: none. Procedure: Pre-Anesthesia Assessment: - ASA Grade Assessment: II - A patient with mild systemic disease. After I obtained informed consent, the scope was passed under direct vision. Throughout the procedure, the patient's blood pressure, pulse, and oxygen saturations were monitored continuously.The Colonoscope was introduced through the anus and advanced to the cecum, identified by appendiceal orifice and ileocecal valve. The colonoscopy was performed without difficulty. The patient tolerated the procedure well. The quality of the bowel preparation was good. Findings: The perianal and digital rectal examinations were normal. Multiple medium-mouthed diverticula were found in the sigmoid colon and descending colon. The exam was otherwise without abnormality on direct and retroflexion views. Procedure Code(s): --- Professional --- G0121, Colorectal cancer screening; colonoscopy on individual not meeting criteria for high risk Diagnosis Code(s): --- Professional --- Z12.11, Encounter for screening for malignant neoplasm of colon CPT copyright 2020 [employer]. All rights reserved. The codes documented in this report are preliminary and upon boarder hand review may be revised to meet current compliance requirements. Rosalind Askew MD 01/27/2025 10:56:21 AM This report has been signed electronically.Rosalind Askew MD Number of Addenda: 0 Note Initiated On: 01/27/2025 10:41 AM Scope In: Scope Out: Endoscopy Department at [facility] - [address] [place] [phone] Procedure Note Rosalind Askew MD - 01/27/2025 [facility] GI Patient Name: Nikunj Gomez Procedure Date: 01/27/2025 10:41 AM Date of : 1960 Age: 64 Gender: Male Note Status: Finalized Attending MD: Rosalind Askew MD, Procedure Date No Time: 01/27/2025 Procedure: Colonoscopy Indications: Screening for colorectal malignant neoplasm Providers: Rosalind Askew MD Referring MD: Madelin Chicas NP Medicines: Propofol per Anesthesia Complications: No immediate complications. Estimated Blood Loss: Estimated blood loss: none. Procedure: Pre-Anesthesia Assessment: - ASA Grade Assessment: II - A patient with mild systemic disease. After I obtained informed consent, the scope was passed under direct vision. Throughout theprocedure, the patient's blood pressure, pulse, and oxygen saturations were monitored continuously.The Colonoscope was introduced through the anus and advanced to the cecum, identified by appendiceal orifice and ileocecal valve. The colonoscopy was performed without difficulty. The patient tolerated the procedure well. The quality of the bowel preparation was good. Findings: The perianal and digital rectal examinations were normal. Multiple medium-mouthed diverticula were found inthe sigmoid colon and descending colon. The exam was otherwise without abnormality ondirect and retroflexion views. Procedure Code(s): --- Professional --- G0121, Colorectal cancer screening; colonoscopy on individual not meeting criteria for high risk Diagnosis Code(s): --- Professional --- Z12.11, Encounter for screening for malignantneoplasm of colon CPT copyright 2020 [employer]. All rights reserved. The codes documented in this report are preliminary and upon boarder hand reviewmay be revised to meet current compliance requirements. Rosalind Askew MD 01/27/2025 10:56:21 AM This report has been signed electronically.Rosalind Askew MD Number of Addenda: 0 Note Initiated On: 01/27/2025 10:41 AM Scope In: Scope Out: Endoscopy Department at [facility] - [address] [place] [phone] IMPRESSION: - Diverticulosis in the sigmoid colon and in the descending colon. - The examination was otherwise normal on directand retroflexion views. - No specimens collected. Recommendation: - Repeat colonoscopy in 10 years for screening purposes. Rosalind Askew MD GI~PROCEDURE ORDERABLES Final Result * EGD Anesthesia - MAC; [facility] ENDOSCOPY (01/27/2025 10:56 AM EDT) Anatomical Region Laterality Modality Other 01/27/2025 10:2 7 AM EDT Impressions 01/27/2025 10:41 AM EDT - Normal esophagus. - Normal stomach. Biopsied. - Normal examined duodenum. Recommendation: - Continue present medications. - Await pathology results. Narrative 01/27/2025 10:41 AM EDT [facility] GI Patient Name: Nikunj Gomez Procedure Date: 01/27/2025 10:27 AM Date of : 1960 Age: 64 Gender: Male Note Status: Finalized Attending MD: Rosalind Askew MD, Procedure Date No Time: 01/27/2025 Procedure: Upper GI endoscopy Indications: Follow-up of gastro-esophageal reflux disease Providers: Rosalind Askew MD Referring MD: Madelin Chicas NP Medicines: Propofol per Anesthesia Complications: No immediate complications. Estimated Blood Loss: Estimated blood loss: none. Procedure: Pre-Anesthesia Assessment: - ASA Grade Assessment: II - A patient with mild systemic disease. After obtaining informed consent, the endoscope was passed under direct vision. Throughout the procedure, the patient's blood pressure, pulse, and oxygen saturations were monitored continuously.The Endoscope was introduced through the mouth, and advanced to the second part of duodenum. The upper GI endoscopy was accomplished without difficulty. The patient tolerated the procedure well. Findings: The esophagus was normal. The entire examined stomach was normal. Biopsies were taken with a cold forceps for histology. The cardia and gastric fundus were normal on retroflexion. The examined duodenum was normal. Procedure Code(s): --- Professional --- 53366, Esophagogastroduodenoscopy, flexible, transoral; with biopsy, single or multiple Diagnosis Code(s): --- Professional --- K21.9, Gastro-esophageal reflux disease without esophagitis CPT copyright 2020 [employer]. All rights reserved. The codes documented in this report are preliminary and upon boarder hand review may be revised to meet current compliance requirements. Rosalind Askew MD 01/27/2025 10:41:02 AM This report has been signed electronically.Rosalind Askew MD Number of Addenda: 0 Note Initiated On: 01/27/2025 10:27 AM Scope In: Scope Out: Endoscopy Department at [facility] - [address] [place] [id number] Procedure Note Rosalind Askew MD - 01/27/2025 [facility] GI Patient Name: Nikunj Gomez Procedure Date: 01/27/2025 10:27 AM Date of : 1960 Age: 64 Gender: Male Note Status: Finalized Attending MD: Rosalind Askew MD, Procedure Date No Time: 01/27/2025 Procedure: Upper GI endoscopy Indications: Follow-up of gastro-esophageal reflux disease Providers: Rosalind Askew MD Referring MD: Madelin Chicas NP Medicines: Propofol per Anesthesia Complications: No immediate complications. Estimated Blood Loss: Estimated blood loss: none. Procedure: Pre-Anesthesia Assessment: - ASA Grade Assessment: II - A patient with mild systemic disease. After obtaining informed consent, the endoscope was passed under direct vision. Throughout theprocedure, the patient's blood pressure, pulse, and oxygen saturations were monitored continuously.TheEndoscope was introduced through the mouth, and advanced tothe second part of duodenum. The upper GI endoscopy was accomplished without difficulty. The patienttolerated the procedure well. Findings: The esophagus was normal. The entire examined stomach was normal. Biopsieswere taken with a cold forceps for histology. The cardia and gastric fundus were normal on retroflexion. The examined duodenum was normal. Procedure Code(s): --- Professional --- 89428, Esophagogastroduodenoscopy, flexible, transoral; with biopsy, single or multiple Diagnosis Code(s): --- Professional --- K21.9, Gastro-esophageal reflux disease without esophagitis CPT copyright 2020 [employer]. All rights reserved. The codes documented in this report are preliminary and upon boarder hand reviewmay be revised to meet current compliance requirements. Rosalind Askew MD 01/27/2025 10:41:02 AM This report has been signed electronically.Rosalind Askew MD Number of Addenda: 0 Note Initiated On: 01/27/2025 10:27 AM Scope In: Scope Out: Endoscopy Department at [facility] - [address] [place] [phone] IMPRESSION: - Normal esophagus. - Normal stomach. Biopsied. - Normal examined duodenum. Recommendation: - Continue present medications. - Await pathology results. us Rosalind Askew MD GI~PROCEDURE ORDERABLES Final Result * Tissue exam (01/27/2025 10:38 AM EDT) Final Diagnosis Stomach, gastric biopsies: Oxyntic type gastric mucosa with no specific pathologic changes. No Helicobacter type gastritis or reactive changes identified. 01/28/2025 11:51 AM EDT [facility] Gross Description A. Stomach, gastric biopsies: Labeled gastric b stomach . Received in formalin, are five irregular soft to rubbery, rod-pink to red tissue fragments, approximately ranging from 0.25 cm to 0.5 cm in greatest diameters, which are wrapped in paper and submitted in toto in one cassette, five pieces, multiple levels. hs/DG 01/28/2025 11:51 AM EDT [facility] Disclaimer Unless otherwise specified, all tissue is 10% NB formalin fixed and paraffin embedded. 01/28/2025 11:51 AM EDT [facility] Tissue Stomach structure / Unknown 01/27/2025 10:38 AM EDT 01/27/2025 12:35 PM EDT us Rosalind Askew MD LAB PATHOLOGY ORDERABLES Final Result [facility] [address] [place] [address], from Last 3 Months Insurance [employer] Care Teams Agriculture Intern Relationship Specialty Start Date End Date Madelin Chicas NP [address] [place] [id number] PCP - General Family Medicine 08/04/24
--- OUTSIDE RECORDS SUMMARY | 2025-04-29 09:07 | XMS_ITS | Clinical Summary ---
Author Organization [facility] Address [address] [place] [address] Care Team Providers Care J2Ee Application Developer Name Role Phone Unknown, Primary Care Provider Unavailabl e Social History Tobacco Use Types Packs/Day Years Used Date Smoking Tobacco: Never Assessed Sex and Gender Information Value Date Recorded Sex Assigned at Not on file Gender Identity Not on file Sexual Orientation Not on file Job Start Date Occupation Industry Not on file Not on file Not on file Plan of Treatment Health Maintenance Due Date Last Done Comments Hepatitis C Screening 1960 COVID-19 Vaccine (#1) 1960 Depression Screening 1973 Preventative Health Evaluation 1979 DTap / Tdap / Td (1 - Tdap) 02/12/1980 Colon Cancer Screening (Colonoscopy) 2006 Shingrix-Zoster Vaccine (1 of 2) 2011 Influenza Vaccine (#1) 2025 Pneumococcal Vaccine (1 of 1 - PCV) 2026 RSV Adult > 60+ Yrs or Pregn ant (1 - 1-dose 75+ series) 02/12/2036 Hepatitis B Vaccines Aged Out No long er eligible based on patient's age to complete this topic Pneumococcal Vaccine Aged Out No long er eligible based on patient's age to complete this topic RSV Ped < 20 months Aged Out No longe r eligible based on patient's age to complete this topic Care Teams J2Ee Application Developer Relationship Specialty Start Date End Date Unknown, PCP - General 01/05/23
== END 2025-04-29 09:50 | disposition home or self-care (01) ==
LOC: HO.HSMS 08:49
PROVIDERS: PCP Nurse Practitioner Family; Visit Provider Physician Assistant Medical
DX: G47.33 Obstructive sleep apnea (adult) (pediatric) (principal); G47.19 Other hypersomnia; R53.82 Chronic fatigue, unspecified; M72.2 Plantar fascial fibromatosis
CPT/HCPCS: 99204

== ENCOUNTER → 2025-06-14 19:30 | Outpatient (REF) | payer OTHER, SELFPAY ==
--- OUTSIDE RECORDS SUMMARY | 2025-06-14 21:29 | XMS_ITS | Clinical Summary ---
Author Organization [facility] Address [address] [place] [address] Care Team Providers Care Car Pilot Name Role Phone Unknown, Primary Care Provider [...] age to complete this topic Care Teams Car Pilot Relationship Specialty Start Date End Date Unknown, PCP - General 01/05/23
--- OUTSIDE RECORDS SUMMARY | 2025-06-14 21:29 | XMS_ITS | Patient Health Record ---
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 Role Phone Chicas, Madelin Primary Care Provider [phone] [facility] Unavailable [phone] Allergies Allergen (clinical drug ingredient) Drug/Non Drug Allergy documented on EMR Reaction Allergy Type Onset Date Status ciprofloxacin cipro (uncoded) Unknown Allergy Active Results Component Value Reference Range Notes Iron and TIBC-[id number] Reviewed date:05/12/2025 08:07:49 AM Interpretation: Performing Lab:[facility] [place], [employer] [facility], [place], Phone - [phone], Director - [facility] Notes/Report: Test(s) 211734-Kwozzzozecdm, Total, LC/MS; 033843- Methylmalonic Acid, Serum was developed and its performance characteristics determined by [facility]. It has not been cleared or approved by the Food and Drug Administration. Iron Bind.Cap.(TIBC) 282 250-450 ug/dL UIBC 155 111-343 ug/dL Iron 127 38-169 ug/dL Iron Saturation 45 15-55 % Hemoglobin C4h-171651 Reviewed date:05/12/2025 08:07:49 AM Interpretation: Performing Lab:[facility] [employer] [place], [employer] [place], [place], Phone - [phone], Director - [facility] Notes/Report: Test(s) 171600-Cvahatgmpcsw, Total, LC/MS; 922335- Methylmalonic Acid, Serum was developed and its performance characteristics determined by [facility]. It has not been cleared or approved by the Food and Drug Administration. Hemoglobin A1c 5.5 4.8-5.6 % . Prediabetes: 5.7 - 6.4 Diabetes: >6.4 Glycemic control for adults with diabetes: <7.0 Vitamin O33-211654 Reviewed date:05/12/2025 08:07:49 AM Interpretation: Performing Lab:[facility] [address], Phone - [phone], Director - [facility] Notes/Report: Test(s) 503650-Qfarvfbfvwuy, Total, LC/MS; 352585- Methylmalonic Acid, Serum was developed and its performance characteristics determined by [facility]. It has not been cleared or approved by the Food and Drug Administration. Vitamin B12 856 282-4151 pg/mL Folate (Folic Acid), Serum-0 09071 Reviewed date:05/12/2025 08:07:49 AM Interpretation: Performing Lab:[facility] [address], Phone - [phone], Director - [facility] Notes/Report: Test(s) 089338-Dwngecjjqmfz, Total, LC/MS; 770756- Methylmalonic Acid, Serum was developed and its performance characteristics determined by [facility]. It has not been cleared or approved by the Food and Drug Administration. Folate (Folic Acid), Serum 11.5 >3.0 ng/mL A serum folate concentration of less than 3.1 ng/mL is considered to represent clinical deficiency. Urinalysis, Complete-383502 Reviewed date:05/12/2025 08:07:49 AM Interpretation: Performing Lab:[facility] [address], Phone - [phone], Director - [facility] Notes/Report: Test(s) 784220-Aaropmjijdqa, Total, LC/MS; 701091- Methylmalonic Acid, Serum was developed and its performance characteristics determined by [facility]. It has not been cleared or approved by the Food and Drug Administration. Test(s) 679398-Lmjdvxvxlqgi, Total, LC/MS; 311748- Methylmalonic Acid, Serum was developed and its performance characteristics determined by [facility]. It has not been cleared or approved by the Food and Drug Administration. Specific [place] 1.018 1.005-1.030 pH 7.5 5.0-7.5 Urine-Color Yellow Yellow Appearance Clear Clear WBC Esterase Negative Negative Protein Negative Negative/Trace Glucose Negative Negative Ketones Negative Negative Occult Blood Negative Negative Bilirubin Negative Negative Urobilinogen,Semi-Qn 0.2 0.2-1.0 mg/dL Nitrite, Urine Negative Negative Microscopic Examination Micr oscopic follows if indicated. Microscopic Examination See below: Micr oscopic was indicated and was performed. WBC None seen 0 - 5 /hpf RBC 0-2 0 - 2 /hpf Epithelial Cells (non renal) None seen 0 - 10 /hpf Casts None seen None seen /lpf Bacteria None seen None seen/Few Ferritin-730995 Reviewed date:05/12/2025 08:07:49 AM Interpretation: Performing Lab:[facility] [place], [facility] [place], [place], Phone - [phone], Director - [place] Notes/Report: Test(s) 739074-Duszrkbvbyss, Total, LC/MS; 551223- Methylmalonic Acid, Serum was developed and its performance characteristics determined by [facility]. It has not been cleared or approved by the Food and Drug Administration. Ferritin 130 30-400 ng/mL CBC With Differential/Platel et-342091 Reviewed date:05/12/2025 08:07:49 AM Interpretation: Performing Lab:[facility] [place], [address] [place], [place], Phone - [phone], Director - [place] Notes/Report: Test(s) 060358-Wbfrygzocsce, Total, LC/MS; 540109- Methylmalonic Acid, Serum was developed and its performance characteristics determined by [facility]. It has not been cleared or approved by the Food and Drug Administration. WBC 6.9 3.4-10.8 x10E3/uL RBC 5.01 4.14-5.80 x10E6/uL Hemoglobin 15.6 13.0-17.7 g/dL Hematocrit 46.3 37.5-51.0 % MCV 92 79-97 fL MCH 31.1 26.6-33.0 pg MCHC 33.7 31.5-35.7 g/dL RDW 12.4 11.6-15.4 % Platelets 235 150-450 x10E3/uL Neutrophils 64 Not Estab. % Lymphs 24 Not Estab. % Monocytes 8 Not Estab. % Eos 4 Not Estab. % Basos 0 Not Estab. % Neutrophils (Absolute) 4.4 1.4-7.0 x10E3/uL Lymphs (Absolute) 1.7 0.7-3.1 x10E3/uL Monocytes(Absolute) 0.5 0.1-0.9 x10E3/uL Eos (Absolute) 0.3 0.0-0.4 x10E3/uL Baso (Absolute) 0.0 0.0-0.2 x10E3/uL Immature Granulocytes 0 Not Estab. % Immature Grans (Abs) 0.0 0.0-0.1 x10E3/uL PSA Total+% Free-916595 Reviewed date:05/12/2025 08:07:50 AM Interpretation: Performing Lab:[facility] [place], [address], [place], Phone - [phone], Director - [place] Notes/Report: Test(s) 842750-Roivkpnxgeqx, Total, LC/MS; 900393- Methylmalonic Acid, Serum was developed and its performance characteristics determined by [facility]. It has not been cleared or approved by the Food and Drug Administration. Prostate Specific Ag 2.8 0.0-4.0 ng/mL Tyler ECLIA methodology. . According to the [place] [employer], Serum PSA should decrease and [...] or absence of malignant disease. PSA, Free 0.63 N/A ng/mL Tyler ECLIA met hodology. % Free PSA 22.5 The table below lists the probability of [...] PSA for any other population of men. Homocyst(e)ine-458815 Reviewed date:05/12/2025 08:07:50 AM Interpretation: Performing Lab:[facility] [address] [place] [address], Phone - [phone], [facility] Notes/Report: Test(s) 750842-Pahyjxafrwin, Total, LC/MS; 987179- Methylmalonic Acid, Serum was developed and its performance characteristics determined by [facility]. It has not been cleared or approved by the Food and Drug Administration. Homocyst(e)ine 10.4 0.0-17.2 umol/L Methylmalonic Acid, Serum-70 6961 Reviewed date:05/12/2025 08:07:50 AM Interpretation: Performing Lab:[facility] [place] [address] [place] [address], Phone - [phone], [facility] Notes/Report: Test(s) 737660-Suvmzxcolbct, Total, LC/MS; 916975- Methylmalonic Acid, Serum was developed and its performance characteristics determined by [facility]. It has not been cleared or approved by the Food and Drug Administration. Methylmalonic Acid, Serum 158 0-378 nmol/L LP+Non-HDL Cholesterol-66241 5 Reviewed date:05/12/2025 08:07:50 AM Interpretation: Performing Lab:[facility] [place], [address] [place] [address], Phone - [phone], [facility] Notes/Report: Test(s) 995825-Tqnodpwaplxe, Total, LC/MS; 250888- Methylmalonic Acid, Serum was developed and its performance characteristics determined by [facility]. It has not been cleared or approved by the Food and Drug Administration. Cholesterol, Total 145 100-199 mg/dL Triglycerides 123 0-149 mg/dL HDL Cholesterol 41 >39 mg/dL VLDL Cholesterol Seng 22 5-40 mg/dL LDL Chol Calc (NIH) 82 0-99 mg/dL Non-HDL Cholesterol 104 0-129 mg/dL Comp. Metabolic Panel (14)-3 Reviewed date:05/12/2025 08:07:49 AM Interpretation: Performing Lab:[facility] [place] [address] [place] [address], Phone - [phone], [facility] Notes/Report: Test(s) 136598-Jlbrqufdyjke, Total, LC/MS; 639247- Methylmalonic Acid, Serum was developed and its performance characteristics determined by [facility]. It has not been cleared or approved by the Food and Drug Administration. Glucose 95 70-99 mg/dL BUN 13 8-27 mg/dL Creatinine 1.05 0.76-1.27 mg/dL eGFR 79 >59 mL/min/1.73 BUN/Creatinine Ratio 12 10-24 Sodium 140 134-144 mmol/L Potassium 3.9 3.5-5.2 mmol/L Chloride 103 96-106 mmol/L Carbon Dioxide, Total 21 20-29 mmol/L Calcium 9.1 8.6-10.2 mg/dL Protein, Total 6.9 6.0-8.5 g/dL Albumin 4.3 3.9-4.9 g/dL Globulin, Total 2.6 1.5-4.5 g/dL Bilirubin, Total 0.8 0.0-1.2 mg/dL Alkaline Phosphatase 81 44-121 IU/L AST (SGOT) 25 0-40 IU/L ALT (SGPT) 22 0-44 IU/L HCV Antibody RFX to Quant PC [id number] Reviewed date:05/12/2025 08:07:49 AM Interpretation: Performing Lab:[facility] [employer], [employer] [facility], [place], Phone - [phone], Director - [facility] Notes/Report: Test(s) 655260-Lsyxwdprbibd, Total, LC/MS; 714587- Methylmalonic Acid, Serum was developed and its performance characteristics determined by [facility]. It has not been cleared or approved by the Food and Drug Administration. Test(s) 832370-Keuavocsqtxl, Total, LC/MS; 673273- Methylmalonic Acid, Serum was developed and its performance characteristics determined by [facility]. It has not been cleared or approved by the Food and Drug Administration. HCV Ab Non Reactive Non Reactive Interpretation: Not infected with HCV unless early or acute infection is suspected (which may be delayed in an immunocompromised individual), or other evidence exists to indicate HCV infection. Albumin/Creatinine Ratio,Uri ne-457127 Reviewed date:05/12/2025 08:07:49 AM Interpretation: Performing Lab:[facility] [place], [employer] [facility], [place], Phone - [phone], Director - [facility] Notes/Report: Test(s) 050920-Oknnmbyglwzg, Total, LC/MS; 551972- Methylmalonic Acid, Serum was developed and its performance characteristics determined by [facility] [employer] [employer] It has not been cleared or approved by the Food and Drug Administration. Creatinine, Urine 111.3 Not Estab. mg/dL Albumin, Urine <3.0 Not Estab. ug/mL Alb/Creat Ratio <3 0-29 mg/g creat Normal: 0 - 29 Moderately increased: 30 - 300 Severely increased: >300 Vitamin D, 82-Azfpnnl-919444 Reviewed date:05/12/2025 08:07:49 AM Interpretation: Performing Lab:[facility], [address] [place] [address], [place], Phone - [phone], Director - [facility] Notes/Report: Test(s) 730934-Paoffgimmmcc, Total, LC/MS; 379582- Methylmalonic Acid, Serum was developed and its performance characteristics determined by [employer] It has not been cleared or approved by the Food and Drug Administration. Vitamin D, 25-Hydroxy 50.3 30.0-100.0 ng/mL Vitamin D deficiency has been defined by the [place] [employer] and an Endocrine Society practice guideline as a level of serum 25-OH vitamin D less than 20 ng/mL (1,2). The Endocrine Society went on to further define vitamin D insufficiency as a level between 21 and 29 ng/mL (2). 1. IOM ([place] of Medicine). 2010. Dietary reference intakes for calcium and D. [place]: The National Academies Press. 2. Andreia MF, Antonella NC, Chuy VIZCARRA, et al. Evaluation, treatment, and prevention of vitamin D deficiency: an Endocrine Society clinical practice guideline. JCEM. 2010; 96(7):1911-30. Testosterone, Free+Total LC/ MS-658930 Reviewed date:05/12/2025 08:07:49 AM Interpretation: Performing Lab:[facility] [place], [address] [facility], [place], Phone - [phone], Director - [facility] Notes/Report: Test(s) 584926-Dfhjgiykxkuk, Total, LC/MS; 507499- Methylmalonic Acid, Serum was developed and its performance characteristics determined by [facility]. It has not been cleared or approved by the Food and Drug Administration. Testosterone, Total, LC/MS 511.1 264.0-916.0 ng/dL This [facility] LC/MS-MS method is currently certified by the CDC Hormone Standardization Program (HoSt). Adult male reference interval is based on a population of healthy nonobese males (BMI <30) between 19 and 39 years old. Keyona, et.al. JCEM 2017,102;5404-3622. PMID: 08367580. Free Testosterone(Direct) 5.2 6.6-18.1 pg/mL Exercise Stress Nuclear Test Reviewed date:01/20/2025 03:07:01 PM Interpretation: Performing Lab: Notes/Report: Urinalysis, Complete-277627 Reviewed date:09/25/2024 10:13:57 AM Interpretation: Performing Lab:[facility] [place], [address] [facility], Phone - [phone], Director - [place] Notes/Report: Specific [place] 1.014 1.005-1.030 pH 6.0 5.0-7.5 Urine-Color Yellow [...] seen /lpf Bacteria None seen None seen/Few Testosterone-872737 Reviewed date:09/25/2024 10:13:57 AM Interpretation: Performing Lab:[facility] [place], [address] [facility], [place], Phone - [phone], Director - [place] Notes/Report: Testosterone 545 264-916 ng/dL Adult male reference interval is based on a population of healthy nonobese males (BMI <30) between 19 and 39 years old. Keyona, et.al. JCEM 2017,102;7134-4244. PMID: 45523927. Respiratory Panel w/ SARS-Co V2-582470 Reviewed date:09/25/2024 11:21:47 AM Interpretation: Performing Lab:[facility] [place], [address] [place], [place], Phone - [phone], Director - [place] Notes/Report: Adenovirus Not Detected Not Detected Coronavirus [...] Detected Not Detected Comp. Metabolic Panel (14)-3 00564 Reviewed date:09/25/2024 10:13:57 AM Interpretation: Performing Lab:[facility] [place], [address] [place], [place], Phone - [phone], Director - [place] Notes/Report: Glucose 92 70-99 mg/dL BUN 13 [...] ALT (SGPT) 13 0-44 IU/L PSA Total+% Free-699121 Reviewed date:09/25/2024 10:13:57 AM Interpretation: Performing Lab:[facility] [place], [address], [place], Phone - [phone], Director - [place] Notes/Report: Prostate Specific Ag 2.9 0.0-4.0 ng/mL Tyler ECLIA methodology. . According to the [place] [employer], Serum PSA should decrease and [...] PSA, Free 0.64 N/A ng/mL Tyler ECLIA met hodology. % Free PSA 22.1 The table below [...] 0 RR_NumBeats 0 RR_NumNormalBeats 0 RR_SystolicBP 0 Echocardiogram Reviewed date:01/22/2025 01:21:03 PM Interpretation: Performing Lab: Notes/Report: Exercise Treadmill Stress Te st (TMST) Reviewed date:12/19/2024 01:48:49 PM Interpretation: Performing Lab: Notes/Report: Amylase-369385 Reviewed date:07/18/2024 01:29:28 PM Interpretation: Performing Lab:[facility] [address] [place] [address], Phone - [phone], Director - [facility] Notes/Report: Amylase 76 31-110 U/L Lipase-040990 Reviewed date:07/18/2024 01:29:28 PM Interpretation: Performing Lab:[facility] [place] [address] [place] [address], Phone - [phone], Director - [facility] Notes/Report: Lipase 52 13-78 U/L Testosterone-945557 Reviewed date:07/18/2024 01:29:28 PM Interpretation: Performing Lab:[facility] [address] [place] [address], Phone - [phone], Director - [facility] Notes/Report: Testosterone 638 264-916 ng/dL Adult male reference interval is based on a population of healthy nonobese males (BMI <30) between 19 and 39 years old. Keyona et.al. JCEM 2017,102;5592-9181. PMID: 32842082. Luteinizing Hormone(LH)-0042 83 Reviewed date:07/18/2024 01:29:28 PM Interpretation: Performing Lab:[facility] [address] [place] [address], Phone - [phone], Director - [facility] Notes/Report: LH 7.6 1.7-8.6 mIU/mL FSH-149369 Reviewed date:07/18/2024 01:29:28 PM Interpretation: Performing Lab:[facility] [address] [place] [address], Phone - [phone], Director - [facility] Notes/Report: FSH 3.7 1.5-12.4 mIU/mL Prolactin-486904 Reviewed date:07/18/2024 01:29:28 PM Interpretation: Performing Lab:[facility] [address] [place] [address], Phone - [phone], Director - [facility] Notes/Report: Prolactin 9.7 3.6-25.2 ng/mL CBC With Differential/Platel et-310693 Reviewed date:07/18/2024 01:29:28 PM Interpretation: Performing Lab:[facility], [address] [facility], Phone - [phone], Director - [place] Notes/Report: WBC 10.8 3.4-10.8 x10E3/uL RBC 5.11 [...] 0.0 0.0-0.1 x10E3/uL Comp. Metabolic Panel (14)-3 07970 Reviewed date:07/18/2024 01:29:28 PM Interpretation: Performing Lab:[facility], [address] [facility], Phone - [phone], Director - [place] Notes/Report: Glucose 96 70-99 mg/dL BUN 11 [...] 18 0-44 IU/L UA/M w/rflx Culture, Routine -543579 Reviewed date:07/18/2024 01:29:28 PM Interpretation: Performing Lab:[facility] [place], [address] [place] [address] Avenue, [place], Phone - [phone], Director - [place] Notes/Report: Specific [place] 1.018 1.005-1.030 pH 6.0 5.0-7.5 Urine-Color Yellow [...] seen /lpf Bacteria None seen None seen/Few TISSUE EXAM Reviewed date:01/29/2025 04:54:20 PM Interpretation: [...] 10% NB formalin fixed and paraffin embedded. DAVE Reviewed date:07/23/2024 10:49:55 PM Interpretation:Negative Performing Lab: [...] Referred Provider Specialty Gastroentero logy General Notes [facility] 06/19 03:48:18 PM >faxed Referral Priority Routine Referral Appointment Date 10/23/2024 Reason Over 15,000 PVCs, wi ll need consult faxed REFAXED Diagnosis 1 Ventricular prematur e depolarization (I49.3) Referral Organization [facility] Referring Provider First Name Madelin Referring Provider Last Name Aviva Referring Provider Speciality Nurse Geovanny tobar Referred Provider [facility], Testing Referred Provider Specialty Cardiology General Notes Rayne BURRELL 11/2024 05:31:23 PM >faxed, [facility] MACKENZIE 10/28/2024 11:37:53 AM > REFAXED PER PATIENT, Divina BURRELL 01/19/2025 09:19:10 AM > Called PVC spoke to Jing 07/01/2025 at 10:20 am, [facility] MACKENZIE 01/19/2025 09:26:46 AM > Left a message for Renata Referral Priority Routine Referral Appointment Date 02/26/2025 Reason faxed Diagnosis 1 Obstructive sleep ap vicenta (adult) (pediatric) (G47.33) Referral Organization [facility] Referring Provider First Name Madelin Referring Provider Last Name Aviva Referring Provider Speciality Nurse Geovanny tobar Referred Provider Sudha Huff Referred Provider Specialty Sleep Medici ne General Notes Rayne BURRELL 02/15 11:07:33 AM >faxed, [facility] MACKEN[facility] 05/05/2025 03:10:20 PM >faxed record request Referral Priority Routine Reason pt requesting podiat ry consult Diagnosis 1 Plantar fascial fibr omatosis (M72.2) Referral Organization [facility] Referring Provider First Name Madelin Referring Provider Last Name Aviva Referring Provider Speciality Nurse Prac titioner Referred Provider Aida Alvarez Referred Provider Specialty Podiatry General Notes Rayne BURRELL 04/17 04:13:36 PM >faxed Referral Priority Routine Medications Medication SIG (Take, Route, Frequency, Duration) Notes Start Date End Date Status Repatha SureClick 140 MG/ML INJECT 1ML SUBCUTANEOUSLY EVERY 2 WEEKS DIRECTED; Duration: 28 Active Zepbound 2.5 MG/0.5ML 0.5 mL Subcutaneou s weekly; Duration: 30 days 05/03/2025 07/31/2025 Not-Taking Vyvanse 20 MG 1 capsule in the morning Orally Once a day; Duration: 30 days 03/25/2025 Active AndroGel Pump 20.25 MG/ACT (1.62%) 1 pump to skin in the morning to shoulder, upper arms or abdomen Transdermal Once a day; Duration: 30 days 04/16/2025 Active Losartan Potassium 50 MG Take 1 tablet by mouth once daily; Duration: 90 Active Desvenlafaxine Succinate ER 50 MG Take 1 tablet by mouth once daily; Duration: 90 days Active Immunizations Vaccine Route Administration Date Status [...] W/U Status Risk Notes Problem Testicular hypofunction (867119496) Testicular hypofunction (E29.1) Active confirmed Problem Vitamin D deficiency (25792243) Vitamin D deficiency, unspecified (E55.9) Active confirmed Problem Mixed hyperlipidemia (287745141) Mixed hyperlipidemia (E78.2) Active confirmed Problem Major depression, single episode, in complete remission (83043721) Major depressive disorder, single episode, in full remission (F32.5) Active confirmed Problem Generalized anxiety disorder (50680346) Generalized anxiety disorder (F41.1) Active confirmed Problem Attention deficit hyperactivity disorder, combined type (23095597) Attention-deficit hyperactivity disorder, combined type (F90.2) Active confirmed Problem Chronic migraine without aura, non-intractable (372498709453972) Chronic migraine without aura, not intractable, without status migrainosus (G43.709) Active confirmed Problem Obstructive sleep apnea syndrome (disorder) (93564200) Obstructive sleep apnea (adult) (pediatric) (G47.33) Active confirmed Problem Chronic kidney disease due to hypertension (184900431224948) Hypertensive chronic kidney disease with stage 1 through stage 4 chronic kidney disease, or unspecified chronic kidney disease (I12.9) Active confirmed Problem Atherosclerotic heart disease of [place] coronary artery without angina pectoris (487834832991639) Atherosclerotic heart disease of [place] coronary artery without angina pectoris (I25.10) Active confirmed Problem Ventricular premature depolarization (639830106) Ventricular premature depolarization (I49.3) Active confirmed Problem Diverticulosis o f both small and large intestine without perforation or abscess with bleeding (K57.51) Active confirmed Problem SHUKLA - Nonalcoholic steatohepatitis (731162177) Nonalcoholic steatohepatitis (SHUKLA) (K75.81) Active confirmed Problem Osteoarthritis of knee (522318840) Bilateral primary osteoarthritis of knee (M17.0) Active confirmed Problem Plantar fascial fibromatosis (73298615) Plantar fascial fibromatosis (M72.2) Active confirmed Problem Chronic kidney disease stage 1 (253948758) Chronic kidney disease, stage 1 (N18.1) Active confirmed Problem Erectile dysfunction (disorder) (155158602) Other male erectile dysfunction (N52.8) Active confirmed Problem History of pulmonary embolus (551659557) Personal history of pulmonary embolism (Z86.711) Active confirmed Problem COVID19 ANGELA-Viru s Identified (U07.1) Active confirmed Problem Obese class II (742634825761663) Body mass index [BMI] 35.0-35.9, adult (Z68.35) Active confirmed Problem Body mass index 35.00 to 39.99 (033834667525504) Body mass index [BMI] 36.0-36.9, adult (Z68.36) Active confirmed Problem Body mass index 35.00 to 39.99 (603772057489645) Body mass index [BMI] 37.0-37.9, adult (Z68.37) Active confirmed Problem Body mass index 30.00 to 34.99 (931475185459016) Body mass index [BMI] 34.0-34.9, adult (Z68.34) Problem resolved confirmed Vital Signs Heart Rate 92 /min 06/01/2025 Temperature 96.3 degrees Fahrenheit 06/01/2025 Blood pressure diastolic 72 mm Hg 04/30/2025 Oximetry 98 % 06/01/2025 Height 5' 8 in 06/01/2025 Blood pressure systolic 122 mm Hg 04/30/2025 Weight 241 lbs 06/01/2025 BMI 35.88 kg/m2 04/30/2025 Procedures Procedure Date Ordered Date Performed Result Body Sit e HOLTER MONITOR, 7 DAYS, INTERPRETATION 10/20/2024 N/A HOLTER MONITOR, 7 DAYS, APPLICATION 09/24/2024 N/A COLONOSCOPY 01/27/2025 01/27/2025 Dr Askew Rpt 10 yrs Encounters Encounter Location Date Provider Diagnosis Tierra Aguilar MD [address] [id number] 06/24/2024 Madelinyrn Brunere Hypertensive chronic kidney disease with stage 1 through stage 4 chronic kidney disease, or unspecified chronic kidney disease I12.9 ; Chronic kidney disease, stage 1 N18.1 ; Major depressive disorder, single episode, in full remission F32.5 ; Generalized anxiety disorder F41.1 ; Attention-deficit hyperactivity disorder, combined type F90.2 and Encounter for screening for malignant neoplasm of colon Z12.11 Tierra Aguilar MD [address] [id number] 07/17/2024 Madelin Chicas Major depressive disorder, single episode, in full remission F32.5 ; Testicular hypofunction E29.1 ; Abdominal distension (gaseous) R14.0 ; Generalized abdominal pain R10.84 ; Vomiting, unspecified R11.10 and Encounter for screening for malignant neoplasm of colon Z12.11 Tierra Aguilar MD [address] [id number] 09/24/2024 Madelin Chicas Generalized abdomina l pain [...] infection, unspecified J06.9 and Palpitations R00.2 Tierra Aguilar MD [address] [id number] 10/20/2024 Madelin Chicas Hypertensive chronic kidney disease with stage 1 through stage 4 chronic kidney disease, or unspecified chronic kidney disease I12.9 ; Major depressive disorder, single episode, in full remission F32.5 ; Generalized anxiety disorder F41.1 ; Attention-deficit hyperactivity disorder, combined type F90.2 and Ventricular premature depolarization I49.3 Tierra Aguilar MD [address] [id number] 04/30/2025 Madelin Chicas Encounter for genera l adult medical examination without abnormal findings Z00.00 ; Hypertensive chronic kidney disease with stage 1 through stage 4 chronic kidney disease, or unspecified chronic kidney disease I12.9 ; Major depressive disorder, single episode, in full remission F32.5 ; Generalized anxiety disorder F41.1 ; Attention-deficit hyperactivity disorder, combined type F90.2 ; Ventricular premature depolarization I49.3 ; Testicular hypofunction E29.1 ; Mixed hyperlipidemia E78.2 ; Atherosclerotic heart disease of [place] coronary artery without angina pectoris I25.10 ; Obstructive sleep apnea (adult) (pediatric) G47.33 ; Diverticulosis of both small and large intestine without perforation or abscess with bleeding K57.51 ; Body mass index [BMI] 35.0-35.9, adult Z68.35 ; Plantar fascial fibromatosis M72.2 ; Impaired fasting glucose R73.01 ; Vitamin D deficiency, unspecified E55.9 ; Encounter for screening for malignant neoplasm of colon Z12.11 ; Encounter for screening for cardiovascular disorders Z13.6 ; Encounter for immunization Z23 ; Encounter for antibody response examination Z01.84 ; Encounter for screening for other viral diseases Z11.59 ; Encounter for screening for malignant neoplasm of prostate Z12.5 and Encounter for screening examination for other mental health and behavioral disorders Z13.39 Tierra Aguilar MD [address] [id number] 06/01/2025 Madelin Chicas Melanocytic nevi of left upper limb, including shoulder D22.62 Tierra Aguilar MD [address] [id number] 07/10/2024 Madelin Chicas Tierra Aguilar MD [address] [place] [address] [id number] 07/18/2024 Madelin Aguilar MD [address] [place] [address] [id number] 07/24/2024 Madelin Chicas Generalized abdomina l pain R10.84 and Vomiting, unspecified R11.10 Tierra Aguilar MD [address] [id number] 08/12/2024 Madelin Chicas Generalized abdomina l pain R10.84 and Vomiting, unspecified R11.10 Tierra Aguilar MD PC [address] [place] [address] [id number] 09/25/2024 Madelin Aguilar MD [address] [id number] 09/26/2024 Madelin Aviva Aguilar MD PC [address] [place] [address] [id number] 10/22/2024 Madelin Aguilar MD [address] [id number] 10/25/2024 Madelin Chicas Tierra Aguilar MD [address] [id number] 12/19/2024 Madelin Chicas Ventricular prematur e depolarization I49.3 Tierra Aguilar MD [address] [id number] 12/29/2024 Madelin Chicasjeannette Aguilar MD [address] [id number] 01/19/2025 Madelin Aguilar MD PC [address] [place] [address] [id number] 02/16/2025 Madelin Chicas Tierra Aguilar MD PC [address] [place] [address] [id number] 04/15/2025 Madelin Chicas Testicular hypofunct ion E29.1 Tierra Aguilar MD PC [address] [place] [address] [id number] 05/04/2025 Madelin Aviva Aguilar MD PC [address] [place] [address] [id number] 05/12/2025 Madelin Aguilar MD PC [address] [place] [address] [id number] 06/06/2025 Madelin Chicas Tierra Aguilar MD PC [address] [facility] [address] [place] [address] [id number] 07/02/2024 Madelin Chicas Tierra Aguilar MD PC [address] [facility] [address] [place] [address] [id number] 07/28/2024 Madelin Chicas Tierra Aguilar MD PC [address] [facility] [address] [place] [address] [id number] 08/06/2024 Madelin Chicas Tierra Aguilar MD PC [address] [facility] [address] [place] [address] [id number] 08/26/2024 Madelin Chicas Mixed hyperlipidemia E78.2 Tierra Aguilar MD PC [address] [facility] [address] [place] [address] [id number] 09/02/2024 Madelin Chicas Tierra Aguilar MD PC [address] [facility] [address] [place] [address] [id number] 09/13/2024 Tierra Aguilar MD PC [address] [facility] [address] [place] [address] [id number] 09/27/2024 Madelin Brunere Tierra Aguilar MD PC [address] [facility] [address] [place] [address] [id number] 10/25/2024 Madelin Aguilar MD PC [address] [facility] [address] [place] [address] [id number] 10/29/2024 Madelin Chicasjeannette Aguilar MD PC [address] [facility] [address] [place] [address] [id number] 10/31/2024 Madelin Aguilar MD PC [address] [facility] [address] [place] [address] [id number] 11/04/2024 Madelin Chicasjeannette Aguilar MD PC [address] [facility] [address] [place] [address] [id number] 12/09/2024 Madelin Aguilar MD PC [address] [facility] [address] [place] [address] [id number] 12/12/2024 Madelin Chicas Tierra Aguilar MD PC [address] [facility] [address] [place] [address] [id number] 12/23/2024 Madelin Aguilar MD PC [address] [facility] [address] [place] [address] [id number] 12/24/2024 Madelin Aguilar MD PC [address] [facility] [address] [place] [address] [id number] 01/21/2025 Madelin Aguilar MD PC [address] [facility] [address] [place] [address] [id number] 02/18/2025 Madelin Aguilar MD [address] [id number] 02/23/2025 Madelin Aguilar MD [address] [id number] 02/27/2025 Madelin Aguilar MD [address] [id number] 03/25/2025 Madelin Aguilar MD [address] [id number] 04/14/2025 Madelin Chicas Testicular hypofunct ion E29.1 Tierra Aguilar MD [address] [id number] 06/08/2025 Madelin Chicas Assessments Encounter Date Diagnosis (ICD Code) Assessment [...] noted to be in the 70s 09/24/2024 Generalized abdominal pain (ICD-10 - R10.84) [...] restarting him at his October follow-up visit 12/19/2024 Ventricular premature depolarization (ICD-10 - I49.3) 04/30/2025 Hypertensive chronic kidney disease with stage 1 through stage 4 chronic kidney disease, or unspecified chronic kidney disease (ICD-10 - I12.9) Blood pressure stable during today's visit. Patient to remain on current medication regimen to control comorbidity of hypertension 04/30/2025 Encounter for general adult medical examination without abnormal findings (ICD-10 - Z00.00) General healthcare up-to-date. Will obtain updated routine labs.Plan to be for annual in 1 year 10/20/2024 Major depressive disorder, single episode, in [...] see if there is a noticeable improvement 10/20/2024 Hypertensive chronic kidney disease with stage 1 through stage 4 chronic kidney disease, or unspecified chronic kidney disease (ICD-10 - I12.9) Blood pressure stable during today's visit. Patient to remain on current medication regimen 08/26/2024 Mixed hyperlipidemia (ICD-10 - E78.2) 08/12/2024 Generalized abdominal pain (ICD-10 - R10.84) 07/24/2024 Generalized abdominal pain (ICD-10 - R10.84) 07/17/2024 Testicular hypofunction (ICD-10 - E29.1) See [...] testosterone replacement therapy is warranted for patient. 06/01/2025 Melanocytic nevi of left upper limb, including shoulder (ICD-10 - D22.62) Reviewed with patient his concerns of a nonhealing raised bump located to his left forearm which has been present for greater than 1 year and has not healed and it has become more bothersome and itchy. Discussed with patient that the differentials could be dermatofibroma or inflamed seborrheic keratosis versus basal cell carcinoma. Patient did give verbal consent to move forward with shave biopsy and see procedure note below 04/15/2025 Testicular hypofunction (ICD-10 - E29.1) 04/14/2025 Testicular hypofunction (ICD-10 - E29.1) 07/17/2024 Abdominal distension (gaseous) (ICD-10 - R14.0) [...] wait for lab results and imaging results 07/24/2024 Vomiting, unspecified (ICD-10 - R11.10) 08/12/2024 Vomiting, unspecified (ICD-10 - R11.10) 10/20/2024 Generalized anxiety disorder (ICD-10 - F41.1) See plan above 04/30/2025 Major depressive disorder, single episode, in full remission (ICD-10 - F32.5) Stable and patient feels as though his current medication regimen for both major depressive disorder and ADHD are helping him manage his symptoms. Patient to remain on current medication regimen and follow-up should he have any new or worsening symptoms of concern despite his current medication regimen 09/24/2024 Hypertensive chronic kidney disease with stage 1 through stage 4 chronic kidney disease, or unspecified chronic kidney disease (ICD-10 - I12.9) Blood pressure stable during today's visit. Patient to remain on current medication regimen 09/24/2024 Chronic kidney disease, stage 1 (ICD-10 - N18.1) Most recent GFR noted to be in the 70s 06/24/2024 Major depressive disorder, single episode, in [...] a current prescription to ensure proper efficacy 04/30/2025 Generalized anxiety disorder (ICD-10 - F41.1) See plan above 10/20/2024 Attention-deficit hyperactivity disorder, combined type (ICD-10 [...] these PVCs and will refer patient to [facility] cardiology. Will also obtain an echocardiogram and stress test to ensure there is no underlying ischemia as this would be helpful to complete before patient is evaluated by cardiology 04/30/2025 Attention-deficit hyperactivity disorder, combined type (ICD-10 - F90.2) Stable at present time and patient states that he is taking his Vyvanse intermittently, more during workdays. He feels as though he is able to manage his focus and concentration even without use of Vyvanse and tends to use this medication during high stress workdays and feels it does help manage his focus and concentration concerns. Patient to follow-up should he feel as though this medication is not helping manage his symptoms 09/24/2024 Generalized anxiety disorder (ICD-10 - F41.1) [...] complete this kit once he receives it 04/30/2025 Ventricular premature depolarization (ICD-10 - I49.3) Patient continues to have intermittent episodes of palpitations. No current symptoms of concern today. Patient also completed a previous Holter monitor with findings of 15,000 PVCs daily. Patient is now followed by [facility] cardiology and did undergo a stress test without findings of ischemia. Patient was prescribed verapamil but he states that the side effects were too much and he is not taking this medication at this time. Patient to follow-up with cardiology as scheduled, or sooner should his palpitation episodes increased or new symptoms of concern began 07/17/2024 Encounter for screening for malignant neoplasm of colon (ICD-10 - Z12.11) Discussed with patient his previous history of diverticulitis and a bowel resection which was new information provided during today's visit. Due to this, would like patient to undergo a screening colonoscopy rather than Cologuard for full evaluation of his bowels 04/30/2025 Testicular hypofunction (ICD-10 - E29.1) Stable and patient to remain on topical testosterone HRT. Patient feels as though his symptoms of fatigue have greatly improved since starting this regimen. Will obtain an updated testosterone level to ensure patient's levels have improved as well 09/24/2024 Encounter for screening for malignant neoplasm [...] than patient using an old, potentially prescription. 04/30/2025 Mixed hyperlipidemia (ICD-10 - E78.2) Patient to remain on Repatha given calcium score of 79 and previous elevated LDL levels. Will obtain an updated lipid panel to ensure adequate LDL control at this time 09/24/2024 Encounter for screening for malignant neoplasm of prostate (ICD-10 - Z12.5) Will obtain a PSA level realizing the limitations of this is a screening test only. Patient offers no urinary concerns at this time. Discussed with patient that his PSA did not result after his lab draw from his annual wellness visit 04/30/2025 Atherosclerotic heart disease of [place] coronary artery without angina pectoris (ICD-10 - I25.10) Patient to remain on Repatha given previous findings of elevated LDL levels as well as elevated calcium score of 79. Will obtain an updated lipid panel as well to ensure adequate LDL control 04/30/2025 Obstructive sleep apnea (adult) (pediatric) (ICD-10 - G47.33) Patient to continue wearing his CPAP for underlying sleep apnea. Patient states that his CPAP machine is showing an error that it may be outdated but the sleep center states that patient's most recent sleep study was without significant findings and due to that they will not assist in obtaining an updated CPAP machine. Encouraged patient to reach out to Dr. Farias's office as patient does have underlying sleep apnea which is controlled due to CPAP use. 09/24/2024 Acute upper respiratory infection, unspecified (ICD-10 [...] be warranted depending on results of Holter 04/30/2025 Diverticulosis of both small and large intestine without perforation or abscess with bleeding (ICD-10 - K57.51) Stable at this time 04/30/2025 Body mass index [BMI] 35.0-35.9, adult (ICD-10 - Z68.35) Patient shares much frustration of weight gain after discontinuing his GLP compounded semaglutide through [employer] due to GI side effects. Discussed with patient that compounded semaglutide was effective in helping him lose weight but due to these negative side effects discontinuing use was his best option. Due to patient's underlying sleep apnea diagnosis as well as elevated BMI would like to prescribe Zepp bound to see if this could be approved by his insurance carrier as an option to help lower his BMI and also manage his comorbidity of sleep apnea. Patient also continue working on his mental health, making lifestyle modifications, and adjusting his diet for further improvement in his BMI as well 04/30/2025 Plantar fascial fibromatosis (ICD-10 - M72.2) Patient continues to have intermittent episodes of plantar fasciitis which he manages with stretching at home. Patient is requesting a referral to a cosmetics presser and referral placed to Dr. Tiara Alvarez and encouraged patient or his to contact the office directly to schedule this visit 04/30/2025 Impaired fasting glucose (ICD-10 - R73.01) Previous lab work did reveal elevated glucose levels. Will obtain an updated comprehensive panel as well as hemoglobin A1c to reassess 04/30/2025 Vitamin D deficiency, unspecified (ICD-10 - E55.9) Will check level to verify that there is no deficiency 04/30/2025 Encounter for screening for malignant neoplasm of colon (ICD-10 - Z12.11) Patient states he completed his colonoscopy in 2024. Patient aware that there are no results to review during today's visit but patient states he was told his colonoscopy was clear and there was recommendation for a repeat 10-year screening. Will obtain these records from Dr. Askew's office for review 04/30/2025 Encounter for screening for cardiovascular disorders (ICD-10 - Z13.6) Blood pressure stable. Will check for comorbidity of hyperlipidemia and hyperglycemia to further assess risk 04/30/2025 Encounter for immunization (ICD-10 - Z23) Vaccines up-to-date per patient. Patient did move to the [facility] and had previous health care in [place] in [place]. Patient to supply our office with these records to ensure he is up-to-date with his vaccines as he is due for a shingles series if patient did not already receive this vaccine 04/30/2025 Encounter for antibody response examination (ICD-10 - Z01.84) Titers have been checked in the past and there is immunity to rubeola 04/30/2025 Encounter for screening for other viral diseases (ICD-10 - Z11.59) Will screen for hepatitis C as per general recommendation 04/30/2025 Encounter for screening for malignant neoplasm of prostate (ICD-10 - Z12.5) Will obtain a PSA level realizing the limitations of this as a screening test only 04/30/2025 Encounter for screening examination for other mental health and behavioral disorders (ICD-10 - Z13.39) PHQ score reviewed and no further interventions warranted. Patient to remain on current medication regimen and consider therapy support should he need any additional assistance with coping strategies 04/30/2025 Other Patient reques gin to have additional lab work placed per his new homeopathic sleep study provider. Labs placed and patient aware that these labs may not be covered by his insurance Plan Of Treatment Pending Test Test Name Order Date Colonoscopy 02/05/2023 25OH VITAMIN D 11/02/2022 COMPLETE CBC WITH DIFF 11/02/2022 COMPLETE URINALYSIS 11/02/2022 COMPREHENSIVE METABOLIC PANEL 11/02/2022 FREE TESTOSTERONE 11/02/2022 FSH 11/02/2022 LH 11/02/2022 LIPID PANEL 11/02/2022 PROLACTIN 11/02/2022 TESTOSTERONE 11/02/2022 TSH WITH REFLEX TO FT4 11/02/2022 URINARY MICROALBUMIN 11/02/2022 CT Abdomen Pelvis WO Cont 08/12/2024 CT Abdomen Pelvis WO Cont 07/24/2024 CT Abdomen WO 07/17/2024 ANTI-HEPATITIS C W/RFLX HCV QNT 11/02/19 23 MMR (MEASLES, MUMPS, RUBELLA) IGG TITER 11/02/2022 HOLTER MONITOR, 7 DAYS, APPLICATION 04/2025 HOLTER MONITOR, 7 DAYS, INTERPRETATION 0 10/20/2024 Pathology Report-[id number] 06/01/2025 PSA Total+% Free-[id number] 03/27/2024 Next Appt Details Provider Name:Madelin Chicas , 11/04/2025 09:30:00 AM, [address] [place] [address], [phone], Provider Name:Madelin Chicas , 05/10/2026 08:30:00 AM, [address] [place] [address], [phone], Insurance Providers Payer Name Payer Address Payer Phone Subscriber Number Group Number Insured Name Patient Relationship to Insured Coverage Start Date Coverage End Date LIA GREGORIO [address] [place] [address] [id number] Nikunj Gomez Self - patient is the [...]
--- OUTSIDE RECORDS SUMMARY | 2025-06-14 21:29 | XMS_ITS | Clinical Summary ---
Author Organization [facility] Address [address] [place] [address] Phone Care Team Providers Care Crew Chief Name Role Phone Madelin Chicas NP Primary Care Provider [phone] Allergies Active Allergy Reactions Criticality Noted Date [...] 5 hours before your procedure. 4000 mL 5 Active Additional Information Patient not taking.Reported on 02/26/2025 bisacodyL (DULCOLAX) 5 mg EC tablet Take 2 tablets by mouth right before beginning bowel prep. See instructions provided by the office 2 tablet Active Additional Information Patient not taking.Reported on 02/26/2025 Repatha SureClick 140 mg/mL pen injector injection Inject 1 mL (140 mg total) under the skin every 14 (fourteen) days. 5 Active desvenlafaxine succinate (PRISTIQ) 50 mg 24 hr tablet Take 1 tablet (50 mg total) by mouth 1 (one) time each day. 5 Active Vyvanse 20 mg capsule Take 1 capsule (20 mg total) by mouth 1 (one) time each day in the morning. 5 Active verapamil SR (CALAN-SR) 120 mg CR tablet Take 1 tablet (120 mg total) by mouth at bedtime. Do not crush or chew. 90 each 3 5 02/27/20 26 Active Active Problems Problem Noted Date Diagnosed Date Ventricular premature depolarization 02/24/2025 Assessment & Plan (02/26/2025 2:53 PM EDT): Orders: Ambulatory referral to Cardiology ECG 12 lead Cardiac holter monitor (<= 48 hours); Future Surgical History Surgery Date Site/Laterality Comments COLON [...] Safety Answer Date Record ed Physical Abuse Unrecognized value 01/27/2025 Verbal Abuse Unrecognized value 01/27/2025 Sex and Gender Information Value Date [...] Procedure Name Priority Date/Time Associated Diagnosis Comments COLONOSCOPY Routine 01/27/2025 10:56 AM EDT Colon cancer screening Gastroesophageal reflux disease, unspecified whether esophagitis present Epigastric pain from Last 3 Months or Most Recently Relevant to Health Maintenance Results * COLONOSCOPY Anesthesia - MAC; MINERS' COLFAX [...] screening purposes. Narrative 01/27/2025 10:56 AM EDT [facility] Patient Name: Nikunj Gomez Procedure [...] malignant neoplasm of colon CPT copyright 2020 [employer] [place] [employer]. All rights reserved. The codes documented in this report are preliminary and upon conveyor installer review may be revised to meet current compliance requirements. Rosalind Askew MD 01/27/2025 10:56:21 AM This report has been signed electronically.Rosalind Askew MD Number of Addenda: 0 Note Initiated On: 01/27/2025 10:41 AM Scope In: Scope Out: Endoscopy Department at [facility] - [address] [place] [phone] Procedure Note Rosalind Askew MD - 01/27/2025 [facility] Patient Name: Nikunj Gomez Procedure [...] for malignantneoplasm of colon CPT copyright 2020 [employer] [place] [employer]. All rights reserved. The codes documented in this report are preliminary and upon conveyor installer reviewmay be revised to meet current compliance requirements. Rosalind Askew MD 01/27/2025 10:56:21 AM This report has been signed electronically.Rosalind Askew MD Number of Addenda: 0 Note Initiated On: 01/27/2025 10:41 AM Scope In: Scope Out: Endoscopy Department at [facility] - [address] [place] [id number] IMPRESSION: - Diverticulosis in the sigmoid colon and in the descending colon. - The examination was otherwise normal on directand retroflexion views. - No specimens collected. Recommendation: - Repeat colonoscopy in 10 years for screening purposes. Rosalind Askew MD GI~PROCEDURE ORDERABLES Final Result from Last 3 Months or Most Recently Relevant to Health Maintenance Insurance [facility] Care Teams Crew Chief Relationship Specialty Start Date End Date Madelin Chicas NP [address] [place] [address] PCP - General Family Medicine 08/04/24
== END ==
LOC: HO.SL 19:30
PROVIDERS: PCP Internal Medicine; Visit Provider Physician Assistant Medical
DX: G47.19 Other hypersomnia (principal)
CPT/HCPCS: 95810

== ENCOUNTER → 2025-06-14 22:16 | Outpatient (BNV) | payer OTHER, SELFPAY | PROVIDERS: PCP Internal Medicine; Visit Provider Psychiatry & Neurology Neurology | DX: R40.0 Somnolence (principal) | CPT/HCPCS: 95810 ==

== ENCOUNTER 2025-08-03 07:54 | Outpatient (AMB) | payer OTHER, SELFPAY ==
[2025-08-03 08:00] VITALS: BP 140/96; PULSE 76; O2SAT 96; BMI 36.4
--- NOTE | 2025-08-03 08:00 | MHC.OFFVIS ---
Vital Signs 08/03/25 08:00 Height 5 ft 9 in Weight 246 lb 8 oz BMI 36.4 BP 140/96 H Blood Pressure Location Rt brachial Position Sitting Pulse 76 Pulse Source Pulse Oximeter Pulse Oximetry (%) 96 Oxygen Delivery Method Room Air Intake Visit Reasons: 3 mo follow up - lvm reminder Intake Note: Patient presents follow up ZAHEER. PSG in chart(AHI-<1, DHAVAL 89%, PLMS-65hr with 2per hr associated with arousals. Check labs for RLS). Accompanied by: Spouse Allergies ciprofloxacin (From Cipro) Allergy (Unknown, Verified 08/03/25 08:03) Unknown HPI Comments Details: 65 year old male presents for a f/u of ZAHEER. Tiara his helps with history. PSG in chart AHI is <1 and O2 nadirs to 89%. 193 PLMS, with index of 65hr, 6 PLMS arousals with arousal index of 2.0/hr. Labs pending: CBC/ CMP Vit D, B12, Ferritin, Homocysteine, MMA to r/o periodic limb movement of sleep. He has had ZAHEER all his life, used a CPAP machine for over 10 years, and his machine is now failing. He can not sleep without his cpap machine. If he doesn't use his cpap machine, he has headaches in the morning and does not feels chronically fatigued. He wakes up at night gasping for air, choking and snores loudly according to his when not on cpap therapy. He has multiple arousals as he moves a lot at night. 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 He denies radiating pain and neuropathy, gait balance difficulties. He has Plantar fasciitis, and flat feet, he walks as tolerable due to pain. Mood is anxious most of the time, he eats cookies and ice cream when he stresses about work. 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 Memory is good on vyvanse which helps improve focus and can concentrate on tasks. FH + Bruce Danlos, joints denies subluxation, has hypermobility, and fh+ alzheimers dad late onset. [facility] Medical History Palpitations Acute upper respiratory infection, unspecified Encounter for screening for malignant neoplasm of prostate Testicular hypofunction Encounter for screening for malignant neoplasm of colon Attention-deficit hyperactivity disorder, combined type Generalized anxiety disorder Major depressive disorder, single episode, in full remission Hypertensive chronic kidney disease with stage 1 through stage 4 chronic kidney disease, or unspecified chronic kidney disease Chronic kidney disease, stage 1 Generalized abdominal pain Body mass index 34.0-34.9, adult ADHD Pulmonary embolism Diverticulitis Depression Sleep apnea HTN (hypertension) Surgical History History of colon resection Hx of appendectomy History of total right knee replacement History of left knee replacement Family History Father Hip fracture Mother Ovarian cancer Brother Prostate cancer Maternal Grandmother Breast cancer Social History Alcohol intake: current Alcohol intake frequency: holidays/special occasions only Patient Tobacco Use Status: Never used Tobacco e-Cigarette/Vaping Use: Never Used Physical Exam Vital Signs: Last Vital Signs Pulse 76 08/03/25 08:00 BP 140/96 H 08/03/25 08:00 Pulse Ox 96 08/03/25 08:00 Oxygen Delivery Method Room Air 08/03/25 08:00 BMI result Body Mass Index 36.4 Const General: cooperative, comfortable and no acute distress Nutritional Appearance: obese Orientation/consciousness: patient oriented x3 HEENT Face and sinus: Yes face symmetric Teeth and gingiva: other ([place] score is 4) Eyes Pupils: Equal, round and reactive pupils present Neck Neck: Yes full ROM Resp Effort & Inspection: normal respiratory effort and able to speak in complete sentences Neuro General: patient oriented x3 and moves all extremities Cranial nerves: Yes Facial sensation intact/muscles of mastication intact, Yes Equal, round and reactive pupils present, Yes Normal accommodation reflex present, Yes Nystagmus not present, Yes Normal facial strength present, Yes Midline tongue present, Yes Ability to bilaterally rotate head present and Yes Ability to bilaterally elevate shoulders present Cognition (Neuro): normal cognition Gait exam (Neuro): Normal gait present Motor exam (neuro): 5/5 motor strength present throughout Deep tendon reflexes (DTR's): Right triceps reflex intensity grade: 2+, Left triceps reflex intensity grade: 2+, Rt Biceps (C5, C6): 2+, Left biceps reflex intensity grade: 2+, Right brachioradialis reflex intensity grade: 2+, Left brachioradialis reflex intensity grade: 2+, Right patellar reflex intensity grade: 3+ and Left patellar reflex intensity grade: 3+ Psych Appearance: grossly normal Mental Status: mental status grossly normal Thought process: Normal thought process present Thought content: Normal thought content present Results Reviewed Results Reviewed: PSG in chart AHI is <1 and O2 nadirs to 89%. 193 PLMS, with index of 65hr, 6 PLMS arousals with arousal index of 2.0/hr. Labs pending: CBC/ CMP Vit D, B12, Ferritin, Homocysteine, MMA to r/o periodic limb movement of sleep. Assessment & Plan Assessment & Plan (1) ZAHEER on CPAP: Comment: machine is failing Code(s): G47.33 - Obstructive sleep apnea (adult) (pediatric) Category: Medical (2) Excessive daytime sleepiness: Comment: PSG Code(s): G47.19 - Other hypersomnia Category: Medical (3) Chronic fatigue: Comment: Labs Code(s): R53.82 - Chronic fatigue, unspecified Category: Medical (4) Plantar fasciitis, bilateral: Code(s): M72.2 - Plantar fascial fibromatosis Category: Medical (5) Periodic limb movements of sleep: Code(s): G47.61 - Periodic limb movement disorder Category: Medical (6) RLS (restless legs syndrome): Code(s): G25.81 - Restless legs syndrome Category: Medical Plan PSG reviewed with pt.193 PLMS, with index of 65hr, 6 PLMS arousals with arousal index of 2.0/hr. Mask fitting and cpap rx to [facility]. RLS will monitor, PLMS declines Gabapentin, will review Nidra at f/u not improved. Labs pending: CBC/ CMP Vit D, B12, Ferritin, Homocysteine, MMA to r/o periodic limb movement of sleep, r/o anemia, deficiencies. ADHD continue vyvanse 20mg po daily, at breakfast. Irritable mood due to lack of sleep, address Desvenlafaxine dose with pcp. Podiatry referral Bilateral foot pain w/ Plantar fasciitis per pcp. F/U in 3 months. Patient Instructions: Sleep Hygiene provided: set a scheduled bedtime and wake time to help regulate the circadian rhythm and balance the release of pituitary hormones. Sleep in a dark room, temperatures below 68 degrees, and no devices n bed. Limit caffeinated products 6 hours prior to bed, and limit fluids 2-4 hours prior to bed. Gentle night yoga, diffusing essential oils, and playing soft music can be relaxing. Coding Level of Care Code Est Pt Level 4 (54684) Diagnoses ZAHEER on CPAP G47.33 Excessive daytime sleepiness G47.19 Chronic fatigue R53.82 Plantar fasciitis, bilateral M72.2 Periodic limb movements of sleep G47.61 RLS (restless legs syndrome) G25.81
== END 2025-08-03 08:43 | disposition home or self-care (01) ==
LOC: HO.HSMS 07:55
PROVIDERS: PCP Internal Medicine; Visit Provider Physician Assistant Medical
DX: G47.33 Obstructive sleep apnea (adult) (pediatric) (principal); G47.19 Other hypersomnia; R53.82 Chronic fatigue, unspecified; M72.2 Plantar fascial fibromatosis; G47.61 Periodic limb movement disorder; G25.81 Restless legs syndrome
CPT/HCPCS: 99214